=== PATIENT | female | born 1935 | race Caucasian/White ===

== ENCOUNTER 2021-05-28 08:40 | Inpatient (IN) | payer MEDICARE, SELFPAY ==
[2021-05-28] VITALS (13 sets, daily range): BP systolic 154–177; BP diastolic 64–87; PULSE 63–81; RESP 15–21; TEMP 36.8–36.9; O2SAT 94–100; BMI 42.0
[2021-05-28] MEDS: sodium chloride 0.9% 1,000 ML 999 ML IV (09:15)
[2021-05-28] MEDS: meclizine 25 mg tablet 50 MG PO (09:16)
--- NOTE | 2021-05-28 09:20 | ED_ITS ---
HPI - Dizziness General: Chief Complaint: Dizziness Stated Complaint: VERTIGO; N/V Time Seen by Provider: 05/28/21 08:41 Source: patient and EMS Mode of arrival: EMS Limitations: no limitations History of Present Illness: HPI Narrative: 85-year-old female has a history of vertigo states that the last day she has been having vertigo spells. States it is worse when walking. She states that she does not take any meds at home and did have some nausea and vomiting today. Patient called EMS today and was given Zofran and states her symptoms have improved. Denies any diarrhea. Denies any headache. States this feels just like her vertigo has in the past. Its improved with rest. Associated symptoms: Reports nausea and vomiting; Denies chest pain or chills Review of Systems Const: Denies: fever(s), chills, body aches or change in appetite Eyes: Denies: blurry vision or eye discomfort ENMT: Denies: throat pain or dental pain Card: Denies: chest pain Resp: Denies: dyspnea GI: Reports: nausea and vomiting : Denies: dysuria Musc: Denies: neck pain or back pain Skin/Breast: Denies: rash Neuro: Reports: vertigo Psych: Denies: depression Lazaro/Lymph: Denies: easy bruising All/Imm: Denies: urticaria PFSH ED PFSH: Family History (Updated 10/25/20 @ 11:07 by Stacey Tabares LPN) Denies family history of Diabetes Cancer Social History (Updated 10/25/20 @ 11:08 by Stacey Tabares LPN) Smoking and tobacco status: never smoked Household members: none Current occupational status: retired Physical Exam Const: COMMON NORMALS: no acute distress, patient oriented x3 and healthy appearing HENMT: COMMON NORMALS: normocephalic and atraumatic HEAD & SCALP: normocephalic and atraumatic Eye: COMMON NORMALS: Equal, round and reactive pupils present and EOMs intact bilaterally PUPIL: Yes Equal, round and reactive pupils present Neck/C-Spine: COMMON NORMALS: full ROM and supple Chest: COMMONS NORMALS: normal inspection of the chest and normal palpation of entire chest wall Resp: COMMON NORMALS: normal respiratory effort, No retractions, No use of accessory muscles and clear to auscultation bilaterally AUSCULTATION: clear to auscultation bilaterally Cardio: COMMON NORMALS: regular rate, regular rhythm and No murmurs present (Cardio) RATE: regular rate RHYTHM: regular rhythm GI: COMMON NORMALS: Normal to inspection, nondistended, normoactive bowel sounds present, Soft to palpation, non-tender and no masses PALPATION: Yes Soft to palpation Extremity: COMMON NORMALS: normal to inspection and full ROM Neuro: COMMON NORMALS: patient oriented x3, moves all extremities and no focal motor deficits Psych: COMMON NORMALS: mental status grossly normal, Normal thought process present and cooperative THOUGHT PROCESS: Normal thought process present Skin: COMMON NORMALS: no rashes or lesions noted and no wounds GENERAL SKIN EXAM: no rashes or lesions noted Course Vital Signs: Vital signs: Vital Signs Temperature 98.4 F 05/28/21 08:53 Pulse Rate 65 05/28/21 08:53 Respiratory Rate 21 H 05/28/21 08:53 Blood Pressure 159/87 05/28/21 08:53 Pulse Oximetry 99 05/28/21 08:53 MDM - Dizziness MDM Narrative: Medical decision making narrative: Patient presents here with vomiting along with vertigo. Vomiting likely due to vertigo. Vertigo seems to be peripheral in nature and she has had a history of peripheral vertigo. Her symptoms are improved with meclizine and Zofran. She is hyponatremic likely due to dehydration. Spoke to hospitalist will admit at this time. Lab Data: Labs: Lab Results 05/28/21 05/28/21 Range/Units 09:08 09:08 WBC 7.4 (4.0-10.0) 10^3/ uL RBC 4.01 L (4.1-5.3) 10^6/u L Hgb 12.3 (11.5-15.3) g/dL Hct 36.5 L (37.0-47.0) % MCV 91.0 (81-99) fL MCH 30.7 (28.0-34.0) pg MCHC 33.7 (30.0-36.0) g/dL RDW 12.5 (12.1-15.1) % Plt Count 259 (130-400) 10^3/c mm MPV 10.3 (7.4-10.4) fL Neut % (Auto) 67.5 % Lymph % (Auto) 24.7 % [place] % (Auto) 6.3 % Eos % (Auto) 0.3 % Baso % (Auto) 0.7 % Neut # (Auto) 5.00 (1.8-7.7) 10^3/u L Lymph # (Auto) 1.8 (0.8-4.8) 10^3/u L [place] # (Auto) 0.5 (0.2-0.9) 10^3/u L Eos # (Auto) 0.0 (0.0-0.8) 10^3/u L Baso # (Auto) 0.1 (0.0-0.1) 10^3/u L Nucleated RBC % (a uto) 0 % Nucleated RBCs # 0.0 /100WBC Sodium 122 L (136-145) mmol/L Potassium 4.0 (3.5-5.1) mmol/L Chloride 88 L (98-107) mmol/L Carbon Dioxide 22 (22-29) mmol/L Anion Gap 16.0 (5-19) BUN 13 (8-23) mg/dL Creatinine 0.5 (0.5-0.9) mg/dL GFR Calculation Not Reportable Glucose 213 H (65-115) mg/dL Calculated Osmolal ity 260 L (285-295) mOsm/k g Calcium 8.6 (8.5-10.5) mg/dL Total Bilirubin 0.3 (0.15-1.2) mg/dL AST 21 (0-32) U/L ALT 15 (0-33) U/L Alkaline Phosphata se 95 (35-105) IU/L Total Protein 6.7 (6.6-8.7) g/dL Albumin 3.8 (3.5-5.2) g/dL Globulin 2.9 (1.3-4.6) g/dL Lipase 14 (13-60) U/L Discharge Plan Discharge Patient Disposition: Admitted As Inpatient Clinical Impression: Acute hyponatremia, Vertigo, Vomiting Condition: Stable Coding Level of Care Code ED Area Intelligence Technician for Armando Fwd Exam Comprehensive
[2021-05-28 09:27] LABS: Basophils # 0.1 10^3/uL (0.0-0.1); Basophils % 0.7 %; Eosinophils % 0.3 %; Hematocrit 36.5 % (37.0-47.0); Hemoglobin 12.3 g/dL (11.5-15.3); Lymphocytes # 1.8 10^3/uL (0.8-4.8); Lymphocytes % 24.7 %; Mean Corpuscular HGB Conc 33.7 g/dL (30.0-36.0); Mean Corpuscular Hemoglobin 30.7 pg (28.0-34.0); Mean Platelet Volume 10.3 fL (7.4-10.4); Monocytes # 0.5 10^3/uL (0.2-0.9); Monocytes % 6.3 %; Neutrophils % 67.5 %; Nucleated Red Blood Cells % 0 %; Platelet Count 259 10^3/cmm (130-400); Red Blood Count 4.01 10^6/uL (4.1-5.3); Red Cell Distribution Width 12.5 % (12.1-15.1); White Blood Count 7.4 10^3/uL (4.0-10.0)
[2021-05-28 09:45] LABS: Alanine Aminotransferase 15 U/L (0-33); Albumin Level 3.8 g/dL (3.5-5.2); Alkaline Phosphatase 95 IU/L (35-105); Aspartate Amino Transferase 21 U/L (0-32); Blood Urea Nitrogen 13 mg/dL (8-23); Calcium 8.6 mg/dL (8.5-10.5); Carbon Dioxide 22 mmol/L (22-29); Chloride 88 mmol/L (98-107); Globulin 2.9 g/dL (1.3-4.6); Glucose 213 mg/dL (65-115); Lipase 14 U/L (13-60); Osmolality Calculated 260 mOsm/kg (285-295); Sodium 122 mmol/L (136-145); Total Bilirubin 0.3 mg/dL (0.15-1.2); Total Protein 6.7 g/dL (6.6-8.7)
--- NOTE | 2021-05-28 10:13 | XRR_ITS ---
PROCEDURE INFORMATION: Exam: XR Chest Exam date and time: 05/28/2021 10:13 AM Age: 85 years old Clinical indication: Shortness of breath; Additional info: Vertigo TECHNIQUE: Imaging protocol: XR of the chest. Views: 1 view. Total images: 1 COMPARISON: CR Chest 2 views* [id number] 12/08/2015 10:34 AM FINDINGS: Lungs: Nonspecific left lung base opacity favors atelectasis or pneumonia. Pleural spaces: Unremarkable. No pleural effusion. No pneumothorax. Heart/Mediastinum: Mild cardiomegaly. Bones/joints: Osseous structures are unchanged from the prior exam. XR/XR chest 1V portable [id number] IMPRESSION: 1. Nonspecific left lung base opacity favors atelectasis or pneumonia. 2. Mild cardiomegaly.
--- NOTE | 2021-05-28 10:30 | PC.NURSE ---
Changed and cleaned pt. No LARGE brief in the ER. Use underpads for coverage
--- NOTE | 2021-05-28 10:39 | PC.PHAR ---
PT STATES SHE TAKES CARE OF HER OWN MEDICATIONS-PT STATES SHE TAKES OXYBUTYNIN 5MG BID SOMETIMES TID EXT MED HISTORY DOESNT SHOW WHEN LAST FILLED [facility] NOT OPEN TO VERIFY-PT STATES SHE USES [address] AT [facility] NOT OPEN TO VERIFY WHAT WAS FILLED-NOTES ARE MADE IN THE PHARMACY COMMENTS
--- NOTE | 2021-05-28 12:02 | PC.NURSE ---
up to [facility] with much assistance. large BM went into the wee hat so no specimen collected
[2021-05-28 12:33] LABS: Blood Urea Nitrogen 12 mg/dL (8-23); Calcium 8.2 mg/dL (8.5-10.5); Carbon Dioxide 24 mmol/L (22-29); Chloride 92 mmol/L (98-107); Glucose 179 mg/dL (65-115); Osmolality Calculated 268 mOsm/kg (285-295); Sodium 127 mmol/L (136-145)
[2021-05-28 12:43] LABS: Anion Gap 14.6 (5-19)
[2021-05-28 12:44] LABS: Potassium 3.6 mmol/L (3.5-5.1)
--- NOTE | 2021-05-28 13:44 | PM.HP ---
Providers/Chief Complaint Primary Care Provider: Jimi Lynn DO Chief Complaint: VERTIGO; N/V History of Present Illness Ryanne Bird is a 85 year old female with a past medical history of BPPV, hypertension, hypothyroidism, ill-pjfxetr-royenqgci type 2 diabetes mellitus, who presents to [facility] due to complaints of vertigo, nausea, vomiting. Patient tells me that she has a history of benign positional vertigo, 2 days ago she had an episode of vertigo, she describes it as an unsteadiness and dizziness, as if the room is spinning around her, no tinnitus, no loss of vision, she did have a couple of stumbling episodes, no significant fall, no significant head trauma no paresthesias, no focal neurologic deficits, no facial droop, no slurring of her speech, episode lasting a few seconds to a few minutes she is not sure if they are worse associate with head positions. Along with the vertigo she felt quite nauseous, vomiting, had a couple of vomiting episodes, was not able to keep down liquids. Symptoms persisted over the next 48 hours, now she tells me that she has significant episodes of vomiting, is not able to keep down any liquids, felt a bit lightheaded, continues to have vertigo episodes, that she decided to come to the emergency room. In the emergency room, she was found to have a serum sodium level of 122, which improved with IV hydration up to 127. Currently she is alert oriented x3, answer all questions appropriate, NIH stroke scale 0, no focal neurologic deficits, no slurring of she is no facial droop, no tenderness, no blurry vision, still feels a bit nauseous, no dizziness currently, denies any chest pain, no palpitations, no cardiac history, no history of CVAs Review of Systems Const: Denies: fever(s), chills, fatigue or malaise Eyes: Denies: change in vision or blurry vision ENMT: Denies: nasal congestion Card: Reports: lightheadedness; Denies: chest pain, palpitations, syncope or dyspnea on exertion Resp: Denies: dyspnea, productive cough, non-productive cough or wheezing GI: Denies: abdominal pain, nausea, vomiting, hematemesis, diarrhea, constipation, hematochezia or melena : Denies: flank pain, dysuria or urinary frequency Musc: Denies: neck pain or back pain Skin/Breast: Denies: rash Neuro: Reports: dizziness and vertigo; Denies: headache(s) Psych: Denies: anxiety or depression Endo: Denies: polyuria or polydipsia Medications/Allergies Home Medications Medication Instructions Recorded Confirmed Last Taken Type artificial tears solution 1 drp OPHTHALMIC (EYE) . DIRECTED 05/28/21 05/28/21 Unknown History aspirin [Aspir-81] 81 mg PO DAILY 05/28/21 05/28/21 Unknown History calcium 1,200 mg PO DAILY 05/28/21 05/28/21 Unknown History cyanocobalamin (vitamin B-12) 1,000 mcg PO BID 05/28/21 05/28/21 Unknown History [Vitamin B-12] ferrous sulfate 27 mg PO BID 05/28/21 05/28/21 Unknown History gabapentin 600 mg PO BID 05/28/21 05/28/21 Unknown History glucos sul [id number]-Mn 1 cap PO BID 05/28/21 05/28/21 Unknown History [Glucosamine Chondroitin] insulin glargine [Lantus Solostar 10 unit SUBCUT BEDTIME 05/28/21 05/28/21 05/26/21 History U-100 Insulin] levothyroxine [Synthroid] 50 mcg PO DAILY 05/28/21 05/28/21 Unknown History losartan 25 mg PO DAILY 05/28/21 05/28/21 Unknown History omega-3 fatty acids [Fish Oil] 2,000 mg PO BID 05/28/21 05/28/21 Unknown History oxybutynin chloride 5 mg PO .BID SOMETIMES TID 05/28/21 05/28/21 Unknown History pioglitazone 45 mg PO DAILY 05/28/21 05/28/21 Unknown History pravastatin 20 mg PO BEDTIME 05/28/21 05/28/21 Unknown History Allergies Allergy/AdvReac Type Severity Reaction Status Date / Time No Known Allergies Allergy Verified 05/28/21 08:42 PFSH Acute PFSH: Medical History (Updated 05/28/21 @ 13:51 by Marcos Osei MD) High cholesterol Type 2 diabetes mellitus with diabetic polyneuropathy Surgical History (Updated 05/28/21 @ 13:49 by Marcos Osei MD) History of cholecystectomy Family History (Updated 08/01/21 @ 13:48 by Marcos Osei MD) Mother Cancer CAD (coronary artery disease) Father Diabetes Social History (Updated 10/25/20 @ 11:08 by Stacey Tabares LPN) Smoking and tobacco status: never smoked Household members: none Current occupational status: retired Vitals/I&O/Wt Last Vital Signs Temp 98.4 F 05/28/21 08:53 Pulse 71 05/28/21 12:00 Resp 15 05/28/21 12:00 BP 176/70 05/28/21 12:00 Pulse Ox 97 05/28/21 12:00 Weight last 48 hrs Weight 111.13 kg Physical Exam Const: COMMON NORMALS: no acute distress and patient oriented x3 GENERAL APPEARANCE: cooperative and comfortable HENMT: COMMON NORMALS: normocephalic HEAD & SCALP: normocephalic Eye: COMMON NORMALS: Equal, round and reactive pupils present and EOMs intact bilaterally GENERAL EYE: appearance normal, both eyes and all related structures PUPIL: Yes Equal, round and reactive pupils present DIRECT OPHTHALMOSCOPY: Yes no papilledema Neck/C-Spine: COMMON NORMALS: full ROM, no JVD and Thyroid normal Lymph: LYMPHATIC: no lymphadenopathy noted Resp: COMMON NORMALS: normal respiratory effort, No retractions, No use of accessory muscles and clear to auscultation bilaterally AUSCULTATION: clear to auscultation bilaterally Cardio: COMMON NORMALS: no JVD, regular rate, regular rhythm, S1 normal heart sound present, S2 normal heart sound present, No gallops present (Cardio), No clicks present (Cardio) and No murmurs present (Cardio) RATE: regular rate RHYTHM: regular rhythm HEART SOUNDS: S1 normal heart sound present and S2 normal heart sound present GI: COMMON NORMALS: Normal to inspection, nondistended, normoactive bowel sounds present, Soft to palpation, non-tender and No hepatosplenomegaly present PALPATION: Yes Soft to palpation and Yes No hepatosplenomegaly present Extremity: COMMON NORMALS: normal to inspection, full ROM and no pedal edema Neuro: COMMON NORMALS: patient oriented x3, CN's II-XII intact bilaterally, moves all extremities and no focal motor deficits Psych: COMMON NORMALS: mental status grossly normal, Normal thought process present and cooperative THOUGHT PROCESS: Normal thought process present Data : 05/28/21 09:08 05/28/21 11:40 A&P Assessment and plan (1) Acute hyponatremia: -Likely related to likely hypovolemic hyponatremia -Continue serum sodium levels improving to 127 Status: Acute (2) Vertigo: -Seems like benign positional vertigo -We will will do troponin series, telemetry monitoring -CT head, carotid artery ultrasound, cardiac echo -Consult PT OT -Justin Hallpike maneuver, antiemetics -Continue IV hydration as above Status: Acute (3) Vomiting: Status: Acute (4) Hypothyroidism: -Recheck TSH Status: Acute (5) Type 2 diabetes mellitus with diabetic polyneuropathy: -Continue glargine 10 units at bedtime, insulin sliding scale Status: Acute Attestations Medical Necessity Statement*: Patient requires hospitalization, outpatient with observation, for dehydration, vertigo, benign positional vertigo, hyponatremia Coding Level of Care Code Acute Glass Lined Tank Repairer for g Fwd Diagnoses Acute hyponatremia E87.1 Vertigo R42 Vomiting R11.10 Hypothyroidism E03.9 Type 2 diabetes mellitus with diabetic polyneuropathy E11.42
[2021-05-28 14:09] LABS: Troponin(5th) Baseline 18 ng/L (0-10)
--- NOTE | 2021-05-28 14:44 | PC.NURSE ---
ekg done and shown to doctor monroe. now on chart
[2021-05-28 15:09] LABS: Blood Urine 2+ (Negative); Glucose Urine UA Norm (Normal); Ketones Urine 1+ (Negative); Nitrate Urine Negative (Negative); Protein Urine 1+ (Negative); Specific Gravity, Urine 1.015 (1.005-1.030); Urine Appearance Cloudy (CLEAR); Urine Color Straw (Yellow); pH Urine 6.5 (5-7)
[2021-05-28 15:10] LABS: Add Urine Culture? No; Add Urine Microscopic? YES; Bacteria Urine 4+ /hpf; Bilirubin Urine Neg (Negative); Leukocyte Esterase Urine 2+ (Negative); Squamous Epithelial Cell Urine RARE /hpf (0-5); Urobilinogen Urine Norm (Negative); WBC Urine 25-40 /hpf (0-5)
[2021-05-28 15:24] LABS: Thyroid Stimulating Hormone 2.53 uIU/mL (0.27-4.20)
--- NOTE | 2021-05-28 16:27 | CTR_ITS ---
PROCEDURE INFORMATION: Exam: CT Head Without Contrast Exam date and time: 05/28/2021 4:27 PM Age: 85 years old Clinical indication: Dizziness; Patient HX: C/O vertigo TECHNIQUE: Imaging protocol: Computed tomography of the head without contrast. Radiation optimization: All CT scans at this facility use at least one of these dose optimization techniques: automated exposure control; mA and/or kV adjustment per patient size (includes targeted exams where dose is matched to clinical indication); or iterative reconstruction. COMPARISON: No relevant prior studies available. RADIATION DOSE METRICS: Total DLP (mGy-cm): 860.42 FINDINGS: Brain: Mild cortical volume loss. Mild hypodensities in supratentorial periventricular and subcortical white matter, consistent with microangiopathy. No intracranial hemorrhage. Cerebral ventricles: No ventriculomegaly. Paranasal sinuses: Visualized sinuses are unremarkable. No fluid levels. Mastoid air cells: Visualized mastoid air cells are well aerated. Orbital cavity: Prior cataract surgery. Vasculature: No hyperdense artery. Bones/joints: Unremarkable. No acute fracture. Soft tissues: Unremarkable. CT/CT head wo con* [id number] IMPRESSION: 1. No acute intracranial abnormality. Radiation Dose CTDIVOL = (mGy): DLP = 860.42 (mGy-cm)
[2021-05-28] MEDS: famotidine 20 mg Tablet PO (17:05)
[2021-05-28] MEDS: omega-3 fatty acids 1,000 mg Capsule 2000 MG PO (17:05)
[2021-05-28] MEDS: gabapentin 300 mg Capsule 600 MG PO (17:05)
[2021-05-28] MEDS: enoxaparin 40 mg/0.4 mL Syringe SUBCUT (17:05)
[2021-05-28] MEDS: cyanocobalamin 1,000 mcg Tablet 1000 MCG PO (17:05)
[2021-05-28] MEDS: sodium chloride 0.9% 1,000 ML 75 ML IV (17:06)
[2021-05-28 17:21] LABS: Glucose Point of Care 243 mg/dL (70-110)
[2021-05-28 18:10] LABS: Troponin T (5th) Once 18 ng/L (0-10)
--- NOTE | 2021-05-28 19:40 | ECG_ITS ---
[facility] Test Date: 2021-05-28 Pat Name: Ryanne Bird Department: Room: 254 Gender: Female Brake Liner: : 1935 Requested By: Marcos Osei Order Number: [id number] Reading MD: AMINAH ELLIS Measurements Intervals [place] Rate: 72 P: 54 MS: 165 QRS: 61 QRSD: 146 T: 33 QT: 418 QTc: 460 Interpretive Statements SINUS RHYTHM INTRAVENTRICULAR CONDUCTION DELAY [130+ ms QRS DURATION] POSSIBLE RIGHT VENTRICULAR HYPERTROPHY [SOME/ALL OF: PROMINENT R IN V1, LATE TRANSITION, RAD, TIBURCIO, SSS] Compared to ECG 08/08/2019 23:24:30 Intraventricular conduction delay now present Right bundle-branch block no longer present Electronically Signed On 05-29-2021 23:37:25 CDT by AMINAH ELLIS [email or web address]
[2021-05-28 20:22] LABS: Troponin T (5th) Once 19 ng/L (0-10)
[2021-05-28 20:59] LABS: Glucose Point of Care 187 mg/dL (70-110)
[2021-05-28] MEDS: atorvastatin 40 mg Tablet 20 MG PO (21:02)
[2021-05-28] MEDS: insulin glargine 100 units/1 mL 10 UNIT SUBCUT (21:02)
[2021-05-29] VITALS (9 sets, daily range): BP systolic 124–175; BP diastolic 63–75; PULSE 66–86; RESP 16–18; TEMP 36.4–36.8; O2SAT 93–98
[2021-05-29 05:34] LABS: Basophils # 0.1 10^3/uL (0.0-0.1); Basophils % 0.9 %; Eosinophils # 0.2 10^3/uL (0.0-0.8); Hematocrit 33.4 % (37.0-47.0); Hemoglobin 10.9 g/dL (11.5-15.3); Lymphocytes % 39.5 %; Mean Corpuscular HGB Conc 32.6 g/dL (30.0-36.0); Mean Corpuscular Hemoglobin 30.4 pg (28.0-34.0); Mean Corpuscular Volume 93.3 fL (81-99); Mean Platelet Volume 10.6 fL (7.4-10.4); Monocytes # 0.9 10^3/uL (0.2-0.9); Monocytes % 11.7 %; Neutrophils # 3.43 10^3/uL (1.8-7.7); Neutrophils % 44.6 %; Nucleated Red Blood Cells % 0 %; Platelet Count 223 10^3/cmm (130-400); Red Blood Count 3.58 10^6/uL (4.1-5.3); Red Cell Distribution Width 12.9 % (12.1-15.1); White Blood Count 7.7 10^3/uL (4.0-10.0)
[2021-05-29 05:58] LABS: Alanine Aminotransferase 12 U/L (0-33); Albumin Level 3.1 g/dL (3.5-5.2); Alkaline Phosphatase 74 IU/L (35-105); Blood Urea Nitrogen 15 mg/dL (8-23); Calcium 8.1 mg/dL (8.5-10.5); Carbon Dioxide 23 mmol/L (22-29); Chloride 96 mmol/L (98-107); Globulin 2.8 g/dL (1.3-4.6); Glucose 134 mg/dL (65-115); Magnesium 1.6 mg/dL (1.7-2.3); Osmolality Calculated 269 mOsm/kg (285-295); Phosphorus 2.5 mg/dL (2.5-4.5); Sodium 128 mmol/L (136-145); Total Bilirubin 0.3 mg/dL (0.15-1.2); Total Protein 5.9 g/dL (6.6-8.7)
[2021-05-29 06:05] LABS: Aspartate Amino Transferase 18 U/L (0-32)
[2021-05-29 06:44] LABS: Glucose Point of Care 109 mg/dL (70-110)
[2021-05-29] MEDS: sodium chloride 0.9% 1,000 ML 75 ML IV (09:12)
[2021-05-29] MEDS: losartan 50 mg Tablet 25 MG PO (09:20)
[2021-05-29] MEDS: omega-3 fatty acids 1,000 mg Capsule 2000 MG PO ×2 (09:21→19:33)
[2021-05-29] MEDS: levothyroxine 50 mcg Tablet PO (09:21)
[2021-05-29] MEDS: cyanocobalamin 1,000 mcg Tablet 1000 MCG PO ×2 (09:21→19:33)
[2021-05-29] MEDS: famotidine 20 mg Tablet PO ×2 (09:21→19:33)
[2021-05-29] MEDS: aspirin 81 mg EC Tablet PO (09:21)
[2021-05-29] MEDS: gabapentin 300 mg Capsule 600 MG PO ×2 (09:21→19:34)
--- NOTE | 2021-05-29 10:31 | PC.CHAP ---
Pastoral Care Encounter/Spiritual Assessment Type of Contact [] Declined staff veterinarian visit [] Patient/Family/Request visit [] Outpatient visit [x] Follow-up visit [] Physician referral [] Code/Alert [] Routine visit [] Staff referral [] Actively dying [] Patient sleeping [] Family support [] [] Out of room [] Palliative care [] [] Receiving care in room [] Pre-surgical visit [] Trauma [] Long length of stay [] ICU visit [] Other: Relational/Emotional Strength [] Patient feels connected with others/family/visitors/staff [] Distress [] Loneliness/isolation [] Abandonment Spirituality of Patient [] Person of Jania [] Attends Sikh of their Jania [] Believes in Prayer [] Reads Bible or Anabaptist materials [] There are Spiritual issues to be addressed Pony Ride Attendant Interventions [] Prayer [] Active listening [] Non-anxious presence [] Spiritual/emotional support [] Crisis/trauma care [] Spiritual counseling [] Bereavement support [] Provided bereavement packet [] Provided Bible/devotional materials [] Provided toy/stuffed animal, coloring book to patient or family member [] Provided Communion [] Anointing/[place] [] Salvation [] Completed spiritual assessment [] Other: Impact on Illness or Injury [] Angry [] Fearful [] Anxious [] Often cries [] Exhaustion [] Unable to work [] Unable to attend mormon [] Unable to walk/stand [] Unable to read [] Unable to drive [] Unable to eat/drink [] Unable to sleep [] Unable to be with family [] Patient intubated [] Other: Summary Time spent with patient
[2021-05-29] MEDS: amlodipine 10 mg Tablet PO (10:59)
[2021-05-29 11:03] LABS: Glucose Point of Care 225 mg/dL (70-110)
--- NOTE | 2021-05-29 12:00 | PM.PN ---
Subjective Subjective: Interval history: Patient was seen ambulating hallways with physical therapy staff, she reports dizziness especially when changing head positions, no nausea, no vomiting, no generalized weakness, no focal weakness, no paresthesias, Vitals/I&O/Wt Last Vital Signs Temp 98.0 F 05/29/21 11:36 Pulse 66 05/29/21 11:36 Resp 18 05/29/21 11:36 BP 168/69 05/29/21 11:36 Pulse Ox 97 05/29/21 11:36 05/28/21 05/29/21 05/29/21 22:59 06:59 14:59 Intake Total 360 / 1360 1000 / 2360 Output Total 300 / 300 700 / 700 Balance 360 / 1360 700 / 2060 -700 / -700 Weight last 48 hrs Weight 111.13 kg Physical Exam Const: COMMON NORMALS: no acute distress and patient oriented x3 Resp: COMMON NORMALS: normal respiratory effort, No retractions, No use of accessory muscles and clear to auscultation bilaterally AUSCULTATION: clear to auscultation bilaterally Cardio: COMMON NORMALS: regular rate, regular rhythm, S1 normal heart sound present and S2 normal heart sound present RATE: regular rate RHYTHM: regular rhythm HEART SOUNDS: S1 normal heart sound present and S2 normal heart sound present GI: COMMON NORMALS: Normal to inspection, nondistended, normoactive bowel sounds present, Soft to palpation and non-tender PALPATION: Yes Soft to palpation Extremity: COMMON NORMALS: no pedal edema Neuro: COMMON NORMALS: patient oriented x3 Psych: COMMON NORMALS: mental status grossly normal Data : 05/29/21 04:25 05/29/21 04:25 Micro: Microbiology 05/28/21 14:20 Urine Culture - Preliminary Urine Catheterized Gram Negative Rods A&P Assessment and plan (1) Acute hyponatremia: -Likely related to likely hypovolemic hyponatremia -Continue monitoring serum sodium levels improving to 128 Status: Acute (2) Vertigo: -Seems like benign positional vertigo -Does have nystagmus, bilaterally -We will will do troponin series, telemetry monitoring -CT head no acute findings, carotid artery ultrasound, cardiac echo -Consult PT OT -Justin Hallpike maneuver, antiemetics -Hold IV hydration Status: Acute (3) Vomiting: Status: Acute (4) Hypothyroidism: -Recheck TSH Status: Acute (5) Type 2 diabetes mellitus with diabetic polyneuropathy: -Continue glargine 10 units at bedtime, insulin sliding scale Status: Acute (6) UTI (urinary tract infection): Urine cultures show greater than 100,000 gram-negative rods, start Rocephin Status: Acute Attestations Medical Necessity Statement*: Patient requires hospitalization inpatient, Greater than 2 midnights, due to dizziness, UTI, vomiting, hyponatremia Coding Level of Care Code Acute Media Center Specialist for [facility] Fwd Diagnoses Acute hyponatremia E87.1 Vertigo R42 Vomiting R11.10 Hypothyroidism E03.9 Type 2 diabetes mellitus with diabetic polyneuropathy E11.42 UTI (urinary tract infection) N39.0
[2021-05-29] MEDS: cefTRIAXone 1,000 MG in sodium chloride 0.9% (plus) 50 ML 100 MG IV (12:07)
--- NOTE | 2021-05-29 16:27 | USCV_ITS ---
Ryanne Bird Age: 85 Gender: F : 1935 Exam Date: 05/29/2021 08:18 Ordering Phys: Marcos Osei MD Technologist: Exam Location: [facility] [place] Indication: DIZZY Risk Factors: Previous Vascular Surgery: Right Brachial BP: / Left Brachial BP: / Right Left Velocity (cm/s) Spectral Plaque Velocity (cm/s) Spectral Plaque Syst/Diast Broadening Syst/Diast Broadening 90.95/ 13.20 Prox CCA 111.40/ 18.80 95.90/ 14.95 Mid CCA 94.10 / 11.60 70.70/ 9.80 Distal CCA 98.40 / 15.90 67.20/ 9.80 Prox ICA 66.00 / 14.50 72.00/ 10.00 Mid ICA 78.30 / 23.50 82.80/ 15.70 Distal ICA 80.50 / 16.80 75.20 ECA 92.60 0.80 ICA/CCA 0.72 Antegrade Vertebral Antegrade 26.30/ 4.50 cm/s 40.30/ 7.80 cm/s Tri Subclavian Tri 47.00 73.80 CONCLUSIONS Right ICA stenosis <50%. Left ICA stenosis <50%. Normal antegrade Doppler flow noted in the right vertebral artery. Normal antegrade Doppler flow noted in the left vertebral artery. Surinder De La Rosa MD (Electronically Signed) Final Date: 29 May 2021 17:21 S
--- NOTE | 2021-05-29 16:27 | USCV_ITS ---
Ryanne Bird Age: 85 Gender: F : 1935 Exam Date: 05/29/2021 08:07 Ordering Phys: Marcos Osei MD Technologist: Exam Location: [facility] [place] Indication: VERTIGO BP: 138 / 69 HR: 69 Rhythm: Sinus Technical Quality: Adequate MEASUREMENTS (Male / Female) Normal Values 2D ECHO LV Diastolic Diameter PLAX 3.7 cm 4.2 - 5.9 / 3.9 - 5.3 cm LV Systolic Diameter PLAX 2.2 cm IVS Diastolic Thickness 1.1 cm 0.6 - 1.0 / 0.6 - 0.9 cm IVS Systolic Thickness 1.1 cm LVPW Diastolic Thickness 1.1 cm 0.6 - 1.0 / 0.6 - 0.9 cm LVPW Systolic Thickness 1.1 cm LVOT Diameter 2.0 cm LV Ejection Fraction 2D Teich 72.0 % LV Ejection Fraction MOD 2C 75.5 % LV Ejection Fraction 2C AL 75.3 % LA Diameter 3.3 cm LA Width 3.4 cm LA Height 6.0 cm RA Width 3.5 cm RA Height 5.1 cm Aorta at Sinotubular Diameter 2.6 cm DOPPLER AV Peak Velocity 172.0 cm/s LVOT Peak Velocity 113.0 cm/s AV Area Cont Eq vti 2.0 cm squared AV Area Cont Eq pk 2.2 cm squared MV Area PHT 5.0 cm squared Mitral E to A Ratio 1.0 MV E' Velocity 71.5 cm/s Mitral E to MV E' Ratio 16.1 Mitral E to LV E' Lateral Ratio 16.1 Mitral E to LV E' Septal Ratio 16.1 TR Peak Velocity 153.3 cm/s TR Peak Gradient 9.4 mmHg TV Peak E Velocity 126.0 cm/s Right Atrial Pressure 3.0 mmHg Pulmonary Artery Systolic Pressu 12.4 mmHg FINDINGS Left Ventricle Normal left ventricular cavity size. Normal left ventricular systolic function. No regional wall motion abnormalities. Left ventricular ejection fraction is estimated at 65 %. Grade I/IV diastolic dysfunction (abnormal relaxation filling pattern), normal to mildly elevated filling pressures. Right Ventricle The right ventricle is normal in size and function. Right Atrium The right atrium is normal in size. Left Atrium The left atrium is normal in size. Mitral Valve Moderately thickened mitral valve. Moderate mitral annular calcification. Mild mitral valve regurgitation. Aortic Valve Moderate aortic valve calcification. No aortic valve stenosis. No aortic valve regurgitation. Tricuspid Valve Structurally normal tricuspid valve without significant stenosis or regurgitation. Pulmonary artery systolic pressure is normal. Pulmonic Valve Structurally normal pulmonic valve without significant stenosis. There is no pulmonic regurgitation. Pericardium Normal pericardium without effusion. Aorta Normal ascending aorta dimension. CONCLUSIONS 1-Normal left ventricular cavity size. Normal left ventricular systolic function. No regional wall motion abnormalities. Left ventricular ejection fraction is estimated at 65 %. Grade I/IV diastolic dysfunction (abnormal relaxation filling pattern), normal to mildly elevated filling pressures. 2-Moderate aortic valve calcification. No aortic valve stenosis. No aortic valve regurgitation. 3-Moderately thickened mitral valve. Moderate mitral annular calcification. Mild mitral valve regurgitation. 4-There is no pericardial effusion. 5-There are no prior echocardiogram studies to compare. Hailee Guthrie MD (Electronically Signed) Final Date: 29 May 2021 23:26 S
[2021-05-29 16:39] LABS: Glucose Point of Care 154 mg/dL (70-110)
[2021-05-29] MEDS: enoxaparin 40 mg/0.4 mL Syringe SUBCUT (19:34)
[2021-05-29 20:23] LABS: Glucose Point of Care 219 mg/dL (70-110)
[2021-05-29] MEDS: atorvastatin 40 mg Tablet 20 MG PO (21:09)
[2021-05-29] MEDS: insulin glargine 100 units/1 mL 10 UNIT SUBCUT (21:10)
[2021-05-30] VITALS (7 sets, daily range): BP systolic 135–152; BP diastolic 69–73; PULSE 74–88; RESP 17–18; TEMP 36.3–36.9; O2SAT 95–100
[2021-05-30 05:52] LABS: Basophils # 0.1 10^3/uL (0.0-0.1); Basophils % 1.2 %; Eosinophils # 0.4 10^3/uL (0.0-0.8); Eosinophils % 4.4 %; Hematocrit 37.1 % (37.0-47.0); Hemoglobin 12.1 g/dL (11.5-15.3); Lymphocytes # 2.2 10^3/uL (0.8-4.8); Mean Corpuscular HGB Conc 32.6 g/dL (30.0-36.0); Mean Corpuscular Hemoglobin 30.3 pg (28.0-34.0); Mean Corpuscular Volume 92.8 fL (81-99); Mean Platelet Volume 10.6 fL (7.4-10.4); Monocytes % 11.5 %; Neutrophils # 4.84 10^3/uL (1.8-7.7); Neutrophils % 56.7 %; Nucleated Red Blood Cells % 0 %; Platelet Count 277 10^3/cmm (130-400); Red Cell Distribution Width 12.8 % (12.1-15.1); White Blood Count 8.5 10^3/uL (4.0-10.0)
[2021-05-30 06:09] LABS: Alanine Aminotransferase 15 U/L (0-33); Albumin Level 3.3 g/dL (3.5-5.2); Alkaline Phosphatase 84 IU/L (35-105); Anion Gap 13.4 (5-19); Aspartate Amino Transferase 21 U/L (0-32); Blood Urea Nitrogen 18 mg/dL (8-23); Calcium 8.6 mg/dL (8.5-10.5); Carbon Dioxide 25 mmol/L (22-29); Chloride 99 mmol/L (98-107); Globulin 3.2 g/dL (1.3-4.6); Glucose 164 mg/dL (65-115); Magnesium 1.6 mg/dL (1.7-2.3); Osmolality Calculated 282 mOsm/kg (285-295); Phosphorus 2.4 mg/dL (2.5-4.5); Potassium 4.4 mmol/L (3.5-5.1); Sodium 133 mmol/L (136-145); Total Bilirubin 0.2 mg/dL (0.15-1.2); Total Protein 6.5 g/dL (6.6-8.7)
[2021-05-30 06:37] LABS: Glucose Point of Care 181 mg/dL (70-110)
[2021-05-30] MEDS: aspirin 81 mg EC Tablet PO (09:06)
[2021-05-30] MEDS: gabapentin 300 mg Capsule 600 MG PO (09:06)
[2021-05-30] MEDS: levothyroxine 50 mcg Tablet PO (09:06)
[2021-05-30] MEDS: omega-3 fatty acids 1,000 mg Capsule 2000 MG PO (09:06)
[2021-05-30] MEDS: losartan 50 mg Tablet 25 MG PO (09:06)
[2021-05-30] MEDS: cyanocobalamin 1,000 mcg Tablet 1000 MCG PO (09:06)
[2021-05-30] MEDS: amlodipine 10 mg Tablet PO (09:07)
[2021-05-30] MEDS: famotidine 20 mg Tablet PO (09:07)
--- NOTE | 2021-05-30 09:23 | MR_ITS ---
WS: [id number] MRI BRAIN WITHOUT CONTRAST HISTORY: vertigo, dizziness COMPARISON: 05/28/2021 TECHNIQUE: Diffusion imaging, multiplanar T1, T2 and FLAIR imaging obtained. No evidence for acute infarct or hemorrhage. Aldrich-white matter differentiation is normal. Mild atrophy and mild chronic microvascular ischemic type changes in the white matter. No prior infar ct. Minimal ischemic change in the LEFT brad. Ventricles and extra-axial spaces are normal. No inferior displacement of cerebellar tonsils. The sella turcica and pituitary gland are unremarkabl e. Dural venous sinuses and [place] demonstrate no abnormality on this unenhanced studies. Paranasal sinuses: Clear. Mastoid air cells: Normal. Calvarium and scalp: Hyperostosis frontalis interna. MR/MR head wo con* [id number] IMPRESSION: 1. No acute infarct. 2. Mild atrophy and mild chronic small vessel ischemic disease.
--- NOTE | 2021-05-30 10:23 | PC.CHAP ---
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 visit [] Patient/Family/Request visit [] Outpatient visit [] Follow-up visit [] Physician referral [] Code/Alert [x] Routine visit [] Staff referral [] Actively dying [] Patient sleeping [] Family support [] [] Out of room [] Palliative care [] [x] Receiving care in room [] Pre-surgical visit [] Trauma [] Long length of stay [] ICU visit [] Other: Relational/Emotional Strength [] Patient feels connected with others/family/visitors/staff [] Distress [] Loneliness/isolation [] Abandonment Spirituality of Patient [] Person of Jania [] Attends Uatsdin of their Jania [] Believes in Prayer [] Reads Bible or Hinduism materials [] There are Spiritual issues to be addressed Forming And Assembling Supervisor Interventions [] Prayer [] Active listening [] Non-anxious presence [] Spiritual/emotional support [] Crisis/trauma care [] Spiritual counseling [] Bereavement support [] Provided bereavement packet [] Provided Bible/devotional materials [] Provided toy/stuffed animal, coloring book to patient or family member [] Provided Communion [] Anointing/Mullen [] Salvation [] Completed spiritual assessment [] Other: Impact on Illness or Injury [] Angry [] Fearful [] Anxious [] Often cries [] Exhaustion [] Unable to work [] Unable to attend rastafari [] Unable to walk/stand [] Unable to read [] Unable to drive [] Unable to eat/drink [] Unable to sleep [] Unable to be with family [] Patient intubated [] Other: Summary Time spent with patient
--- NOTE | 2021-05-30 10:55 | PM.DCS ---
Discharge Providers Date of Admission: 05/29/21 12:07 Date of Discharge: May 30, 2021 Attending Provider at Admission: Marcos Osei MD Attending Provider at Discharge: Marcos Osei MD Primary Care Provider: Jimi Lynn DO Diagnoses at Discharge Discharge Diagnosis (1) Acute hyponatremia: Status: Acute (2) Vertigo: Status: Acute (3) Vomiting: Status: Acute (4) Hypothyroidism: Status: Acute (5) Type 2 diabetes mellitus with diabetic polyneuropathy: Status: Acute (6) UTI (urinary tract infection): Status: Acute Reason for Visit Reason for Visit: VERTIGO; N/V Hospital Course Hospital Course This is a 85-year-old female with a past medical history of benign positional vertigo, hypertension, hyperlipidemia, insulin-dependent type 2 diabetes mellitus, who presents to [facility] due to complaints of vertigo, nausea, vomiting, dehydration Patient was admitted to [facility] for nausea, vomiting, dehydration, vertigo secondary to benign positional vertigo. On admission she was also found to be hyponatremic secondary to dehydration. She received IV hydration, was seen by physical therapy, and maneuvers were employed to help with her BPV symptoms in addition to antiemetics. Patient's nausea, vomiting, dehydration improved with IV hydration, serum sodium was 133 on discharge. She did have some degree of deconditioning during her hospitalization, after discussion with physical therapy, and with patient, it was deemed that she would benefit from home health care. In terms of her vertigo, she continued to have intermittent vertigo episodes despite employing maneuvers, antiemetics, and hydration. CT of the head had no acute findings, carotid artery ultrasound showed no hemodynamically significant stenosis, and telemetry monitoring did not show any significant arrhythmia events, cardiac echo showed an EF of 65%, grade 1 of 4 diastolic dysfunction. MRI of the brain Discharge home with instructions on maneuvers, antiemetics, advised to ambulate with care, home health care, follow-up with a primary care provider in 1 week Physical Exam Const: COMMON NORMALS: no acute distress and patient oriented x3 Resp: COMMON NORMALS: normal respiratory effort, No retractions, No use of accessory muscles and clear to auscultation bilaterally AUSCULTATION: clear to auscultation bilaterally Cardio: COMMON NORMALS: regular rate, regular rhythm, S1 normal heart sound present and S2 normal heart sound present RATE: regular rate RHYTHM: regular rhythm HEART SOUNDS: S1 normal heart sound present and S2 normal heart sound present GI: COMMON NORMALS: Normal to inspection, nondistended, normoactive bowel sounds present, Soft to palpation and non-tender PALPATION: Yes Soft to palpation Extremity: COMMON NORMALS: no pedal edema Neuro: COMMON NORMALS: patient oriented x3 Psych: COMMON NORMALS: mental status grossly normal Discharge Data Data Completed and Pending: Completed Studies During Hospitalization Category Date Time Status CT head wo con* [id number] Urgent Cat Scan 05/28/21 16:27 Completed XR chest 1V efe ble [id number] Stat Exams 05/28/21 10:13 Completed CV carotid duplex BI* [id number] Routine Ultrasound 05/29/21 16:27 Completed CV. echo complete * [id number] Routine Ultrasound 05/29/21 16:27 Completed Pending at discharge Category Date Time Status Complete Blood Co unt w/Auto AM LABS Lab 05/31/21 04:00 Ordered Comprehensive Met abolic Panel AM LA BS Lab 05/31/21 04:00 Ordered Magnesium AM LABS Lab 05/31/21 04:00 Ordered Phosphorus AM LAB S Lab 05/31/21 04:00 Ordered Urine Culture Sta t Lab 05/28/21 14:20 Results MR head wo con* [id number] Routine MRI 05/30/21 09:23 Ordered Labs from last 24 hours 05/30/21 05/30/21 05/30/21 06:22 05:00 05:00 WBC 8.5 RBC 4.00 L Hgb 12.1 Hct 37.1 MCV 92.8 MCH 30.3 MCHC 32.6 RDW 12.8 Plt Count 277 MPV 10.6 H Neut % (Auto) 56.7 Lymph % (Auto) 26.0 [place] % (Auto) 11.5 Eos % (Auto) 4.4 Baso % (Auto) 1.2 Neut # (Auto) 4.84 Lymph # (Auto) 2.2 [place] # (Auto) 1.0 H Eos # (Auto) 0.4 Baso # (Auto) 0.1 Nucleated RBC % (a uto) 0 Nucleated RBCs # 0.0 Sodium 133 L Potassium 4.4 Chloride 99 Carbon Dioxide 25 Anion Gap 13.4 BUN 18 Creatinine 0.6 GFR Calculation Not Reportable Glucose 164 H POC Glucose 181 H Calculated Osmolal ity 282 L Calcium 8.6 Phosphorus 2.4 L Magnesium 1.6 L Total Bilirubin 0.2 AST 21 ALT 15 Alkaline Phosphata se 84 Total Protein 6.5 L Albumin 3.3 L Globulin 3.2 05/29/21 05/29/21 05/29/21 20:18 16:37 11:01 WBC RBC Hgb Hct MCV MCH MCHC RDW Plt Count MPV Neut % (Auto) Lymph % (Auto) [place] % (Auto) Eos % (Auto) Baso % (Auto) Neut # (Auto) Lymph # (Auto) [place] # (Auto) Eos # (Auto) Baso # (Auto) Nucleated RBC % (a uto) Nucleated RBCs # Sodium Potassium Chloride Carbon Dioxide Anion Gap BUN Creatinine GFR Calculation Glucose POC Glucose 219 H 154 H 225 H Calculated Osmolal ity Calcium Phosphorus Magnesium Total Bilirubin AST ALT Alkaline Phosphata se Total Protein Albumin Globulin Vitals: Last Vital Signs Temp 97.8 F 05/30/21 07:44 Pulse 75 05/30/21 07:44 Resp 18 05/30/21 07:44 BP 135/69 05/30/21 09:06 Pulse Ox 100 05/30/21 07:44 Discharge Plan Discharge Patient Disposition: Home Condition: Stable Prescriptions: New amlodipine 10 mg Tablet 10 mg PO Q24H 30 Days Qty: 30 RF: 0 meclizine 25 mg Tablet 25 mg PO TID PRN (Reason: Dizziness) 15 Days Qty: 45 RF: 0 sulfamethoxazole-trimethoprim [Bactrim DS] 800-160 mg tablet 1 tab PO Q12H 3 Days Qty: 6 RF: 0 Continued calcium 600 mg Capsule 1,200 mg PO DAILY RF: 0 gabapentin 600 mg tablet 600 mg PO BID RF: 0 artificial tears solution Drops 1 drp OPHTHALMIC (EYE) . DIRECTED RF: 0 Vitamin B-12 1,000 mcg Tablet 1,000 mcg PO BID RF: 0 pioglitazone 45 mg tablet 45 mg PO DAILY RF: 0 Aspir-81 81 mg Tablet,Delayed Release (Dr/Ec) 81 mg PO DAILY RF: 0 Synthroid 50 mcg tablet 50 mcg PO DAILY RF: 0 losartan 25 mg tablet 25 mg PO DAILY RF: 0 pravastatin 20 mg tablet 20 mg PO BEDTIME RF: 0 oxybutynin chloride 5 mg Tablet 5 mg PO .BID SOMETIMES TID RF: 0 Fish Oil Capsule 2,000 mg PO BID RF: 0 ferrous sulfate 27 mg iron Tablet 27 mg PO BID RF: 0 Lantus Solostar U-100 Insulin 100 unit/mL (3 mL) insulin pen 10 unit SUBCUT BEDTIME RF: 0 Glucosamine Chondroitin 550-30-1 mg Capsule 1 cap PO BID RF: 0 Discharge Orders: Discharge Order (Routine); Ordered 05/30/21 Ordered By: Marcos Osei Referrals: [facility] [Outside] ([place] and [facility] were not able to service you for Home Health. [facility] has accepted and will be seeing you in a few days for Home Health.) Jimi Lynn DO [Primary Care Provider] - Discharge Diet: Diabetic Discharge Activity: Increase activity as tolerated Patient Instructions: Opioid Safety Activity Restrictions/Additional Instructions: -For vertigo episodes please use maneuvers that were taught to you during her hospitalization, and pronounced that were given to you -Meclizine as needed -Bactrim for UTI as above -Follow-up with primary care provider in 1 week -Continue to hydrate well with electrolyte balance fluids Discharge Attestations Time Spent in Discharge Care*: less than 30 min Quality Metrics Clinical Quality Measures During this hospital stay, did patient experience: None Coding Level of Care Code Acute Chg FW DC note Exam Detailed Diagnoses Acute hyponatremia E87.1 Vertigo R42 Vomiting R11.10 Hypothyroidism E03.9 Type 2 diabetes mellitus with diabetic polyneuropathy E11.42 UTI (urinary tract infection) N39.0
[2021-05-30 11:25] LABS: Glucose Point of Care 275 mg/dL (70-110)
[2021-05-30] MEDS: cefTRIAXone 1,000 MG in sodium chloride 0.9% (plus) 50 ML 100 MG IV (13:45)
[2021-05-30 16:54] LABS: Glucose Point of Care 180 mg/dL (70-110)
== END 2021-05-30 17:00 | disposition home health service (06) | DRG 149 ==
LOC: ER 13:23 → ER IP 15:09 → MEDSURG 15:36
PROVIDERS: Admitting Provider Family Medicine; Emergency Provider Emergency Medicine; PCP Internal Medicine; Visit Provider Family Medicine
DX: H81.10 Benign paroxysmal vertigo, unspecified ear (principal); E87.1 Hypo-osmolality and hyponatremia; N39.0 Urinary tract infection, site not specified; I10 Essential (primary) hypertension; E03.9 Hypothyroidism, unspecified; E11.42 Type 2 diabetes mellitus with diabetic polyneuropathy; E86.0 Dehydration; Z79.82 Long term (current) use of aspirin; Z79.4 Long term (current) use of insulin
CPT/HCPCS: 36415; 36416; 70450; 70551; 71045; 80048; 80053; 81001; 82962; 83690; 83735; 84100; 84443; 84484; 85025; 87077; 87086; 87186; 93005; 93306; 93880; 94664; 96361; 96372; 96374; 97162; 97165; 97530; 99285; G0378; J0696; J1650; J1815 ×2; J7030; J8597

== ENCOUNTER 2022-04-26 22:52 | Observation (INO) | payer MEDICARE, SELFPAY ==
[2022-04-26 22:55] VITALS: BP 185/71; PULSE 89; RESP 20; TEMP 36.5; O2SAT 98; BMI 40.7
--- NOTE | 2022-04-26 23:00 | ED_ITS ---
HPI - Weakness General: Chief complaint: Weakness Stated complaint: WEAKNESS Time Seen by Provider: 04/26/22 23:00 History of Present Illness: Ms. Bird is an 86-year-old lady with si gnificant past medical history of diabetes who presents to the emergency department due to generalized symptoms. Onset of symptoms was 2 or 3 days ago and gradual. She endorses generalized malaise, nausea, vomiting, and decreased p.o. intake. She feels generalized weakness without focality. Overall course of symptoms has been worsening. Intensity is moderate. She correlates this with starting steroids for her rash which has subsequently improved. No other specific changes in health, exacerbating, or alleviating factors identified. Onset (ago): day(s) Duration: progressively worsening Severity: moderate Associated symptoms: Reports nausea and vomiting Review of Systems General: Reports: 10 or more systems reviewed and unremarkable except in HPI and below GI: Reports: nausea and vomiting [facility] ED PFSH: Medical History (Updated 04/29/22 @ 00:01 by ) High cholesterol Hypertension Hypothyroidism Type 2 diabetes mellitus with diabetic polyneuropathy Surgical History History of cholecystectomy Family History Mother Cancer CAD (coronary artery disease) Father Diabetes Social History Smoking and tobacco status: never smoked Household members: none Current occupational status: retired Physical Exam Const: COMMON NORMALS: patient oriented x3 and alert GENERAL APPEARANCE: cooperative, well developed and ill appearing (Somewhat) HENMT: COMMON NORMALS: normocephalic and atraumatic HEAD & SCALP: normocep halic and atraumatic Eye: COMMON NORMALS: conjunctivae normal CONJUNCTIVA: Yes conjunctivae normal SCLERA: sclerae normal Neck/C-Spine: COMMON NORMALS: supple GENERAL: Yes trachea midline Resp: COMMON NORMALS: normal respiratory effort and clear to auscultation bilaterally EFFORT & INSPECTION: Yes able to speak in complete sentences AUSCULTATION: clear to auscultation bilaterally Cardio: COMMON NORMALS: regular rate and regular rhythm RATE: regular rate RHYTHM: regular rhythm GI: COMMON NORMALS: Soft to palpation PALPATION: Yes Soft to palpation and No Tenderness to palpation present (GI) PERCUSSION: normal to percussion Extremity: GENERAL: Yes normal exam except as noted and No edema Neuro: COMMON NORMALS: patient oriented x3, CN's II-XII intact bilaterally, moves all extremities, no focal motor deficits and no sensory deficits noted SENSORIUM/ORIENTATION: Yes alert and No Orientation impaired Psych: COMMON NORMALS: mental status grossly normal and Normal thought process present THOUGHT PROCESS: Normal thought process present Course ED course: - Patient was seen and evaluated by me at bedside - Patient placed on cardiac monitors, IV access obtained - Initial evaluation notable for exam as above - Labs and xrays personally interpreted by me. EKG showing sinus rhythm with interventricular conduction delay. No STEMI. Nonspecific ST segment abnormalities likely related to interventricular conduction delay. - Fluids given. Antiemetic given - Labs notable for no leukocytosis, normal hemoglobin. Metabolic panel with evidence of dehydration, hyperglycemia present without evidence of DKA. Urinary tract infection present. - Antibiotics given. - Imaging notable for left lung infiltrate concerning for pneumonia. Patient treated for CAP in addition to urinary tract infection. CT head as well as CT abdomen and pelvis negative for acute pathology to explain symptoms. - Upon serial reexamination after treatment the patient was only mildly improved. Patient was alone and given severity of symptoms he is unable to perform ADLs. - Based on patient history, evaluation, and testing as interpreted the most likely cause of the patient's condition is UTI and pneumonia with dehydration requiring observation in the hospital and further treatment - The results of ED evaluation were discussed with the patient including plan for admission due to requirement for level of care not available if discharged to prevent significant worsening/deterioration. - Admitting service was contacted and Dr Collins with the hospitalist service agreed to admit the patient - Patient was admitted without further deterioration or significant events. Note: Click bubbles or prepopulated king in note writing are used for assistance with data collection and billing and are inherently more limited than narrative and other text portions of this note. Please use narrative for additional clinical history and defer to narrative/free test for any case of contradictory information. If information appears in only free text or click bubble it should be considered present or absent as reported. Please contact note flex o writer operator for clarifications of clinical information or contradictory information. MDM is a brief summary, contradictory or erroneous seeming information should be clarified and full note should be reviewed. Vital Signs: Vital signs: Vital Signs Temperature 98.0 F 04/28/22 14:00 Pulse Rate 92 04/28/22 14:00 Respiratory Rate 18 04/28/22 14:00 Blood Pressure 173/77 04/28/22 14:00 Pulse Oximetry 96 04/28/22 14:00 MDM - Weakness Medical Decision Making 86-year-old lady presenting with generalized symptoms. Patient typically functional at home and lives alone. Patient found to have a pneumonia and urinary tract infection with evidence of dehydration. Admitted to observation with IV antibiotics for further management. Medical Records I reviewed the patient's medical records. Lab Data I reviewed the patient's lab results. : 04/28/22 02:26 04/28/22 02:26 Radiology Impressions Chest X-Ray 04/26/22 23:44 IMPRESSION: Left lung base subsegmental atelectasis or infiltrate. Abdomen/Pelvis CT 04/27/22 00:29 IMPRESSION: No acute findings. Head CT 04/27/22 00:29 IMPRESSION: No acute intracranial abnormality. Laboratory Results WBC 8.0 10^3/uL (4.0-10.0) 04/26/22 23:10 RBC 3.98 10^6/uL (4.1-5.3) L 04/26/22 23:10 Hgb 12.3 g/dL (11.5-15.3) 04/26/22 23:10 Hct 35.6 % (37.0-47.0) L 04/26/22 23:10 MCV 89.4 fl (81-99) 04/26/22 23:10 MCH 30.9 pg (28.0-34.0) 04/26/22 23:10 MCHC 34.6 g/dL (30.0-36.0) 04/26/22 23:10 RDW 13.2 % (12.1-15.1) 04/26/22 23:10 Plt Count 296 10^3/cmm (130-400) 04/26/22 23:10 MPV 10.0 fL (7.4-10.4) 04/26/22 23:10 Neut % (Auto) 61.2 % 04/26/22 23:10 Lymph % (Auto) 27.1 % 04/26/22 23:10 [place] % (Auto) 8.5 % 04/26/22 23:10 Eos % (Auto) 2.1 % 04/26/22 23:10 Baso % (Auto) 0.8 % 04/26/22 23:10 Neut # (Auto) 4.88 10^3/uL (1.8-7.7) 04/26/22 23:10 Lymph # (Auto) 2.2 10^3/uL (0.8-4.8) 04/26/22 23:10 [place] # (Auto) 0.7 10^3/uL (0.2-0.9) 04/26/22 23:10 Eos # (Auto) 0.2 10^3/uL (0.0-0.8) 04/26/22 23:10 Baso # (Auto) 0.1 10^3/uL (0.0-0.1) 04/26/22 23:10 Nucleated RBC % (auto) 0 % 04/26/22 23:10 Nucleated RBCs # 0.0 /100WBC 04/26/22 23:10 Sodium 129 mmol/L (136-145) L 04/26/22 23:10 Potassium 3.5 mmol/L (3.5-5.1) 04/26/22 23:10 Chloride 94 mmol/L (98-107) L 04/26/22 23:10 Carbon Dioxide 24 mmol/L (22-29) 04/26/22 23:10 Anion Gap 14.5 (5-19) 04/26/22 23:10 BUN 11 mg/dL (8-23) 04/26/22 23:10 Creatinine 0.6 mg/dL (0.5-0.9) 04/26/22 23:10 GFR Calculation Not Reportable 04/26/22 23:10 Glucose 225 mg/dL (65-115) H 04/26/22 23:10 POC Glucose 220 mg/dL (70-110) H 04/26/22 23:05 Calculated Osmolality 274 mOsm/kg (285-295) L 04/26/22 23:10 Calcium 8.9 mg/dL (8.5-10.5) 04/26/22 23:10 Total Bilirubin 0.2 mg/dL (0.15-1.2) 04/26/22 23:10 AST 19 U/L (0-32) 04/26/22 23:10 ALT 16 U/L (0-33) 04/26/22 23:10 Alkaline Phosphatase 84 IU/L (35-105) 04/26/22 23:10 Troponin T Baseline 20 ng/L (0-10) H 04/26/22 23:10 Troponin T 120 Minute 26.46 ng/L (0-10) H 04/27/22 01:40 Delta Troponin T 6.46 ABS# (0-10) 04/27/22 01:40 NT-Pro-B Natriuret Pep 941 pg/mL (0-450) H 04/26/22 23:10 Total Protein 7.2 g/dL (6.6-8.7) 04/26/22 23:10 Albumin 3.9 g/dL (3.5-5.2) 04/26/22 23:10 Globulin 3.3 g/dL (1.3-4.6) 04/26/22 23:10 TSH 2.04 uIU/mL (0.27-4.20) 04/26/22 23:10 Urine Color Colorless (Yellow) 04/26/22 23:28 Urine Appearance Sl hazy (CLEAR) 04/26/22 23:28 Urine pH 7 (5-7) 04/26/22 23:28 Ur Specific [place] 1.005 (1.005-1.030) 04/26/22 23:28 Urine Protein 1+ (Negative) H 04/26/22 23:28 Urine Glucose (UA) 1+ (Normal) H 04/26/22 23:28 Urine Ketones Negative (Negative) 04/26/22 23:28 Urine Blood Neg (Negative) 04/26/22 23:28 Urine Nitrate Negative (Negative) 04/26/22 23:28 Urine Bilirubin Neg (Negative) 04/26/22 23:28 Urine Urobilinogen Norm mg/dL (Negative) 04/26/22 23:28 Ur Leukocyte Esterase Negative (Negative) 04/26/22 23:28 Urine RBC 0-4 /hpf (0-2) H 04/26/22 23:28 Urine WBC 25-40 /hpf (0-5) H 04/26/22 23:28 Ur Squamous Epith Cells 0-4 /hpf (0-5) H 04/26/22 23:28 Amorphous Sediment Not Reportable 04/26/22 23:28 Urine Bacteria 4+ /hpf (NONE) H 04/26/22 23:28 Coronavirus 229E (PCR) Not detected (NOT DETECT) 04/27/22 01:40 SARS-CoV-2 (PCR) Not detected (NOT DETECT) 04/27/22 01:40 Discharge Plan Discharge Patient Disposition: Placed in Observation Admit Provider: Ximena Collins Clinical Impression: UTI (urinary tract infection), Pneumonia, Hypoxia Discharge Diet: Cardiac Discharge Activity: Resume usual activity Coding Level of Care Code ED Cream Gatherer for Chg Fwd Exam Comprehensive
--- NOTE | 2022-04-26 23:01 | ECG_ITS ---
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 Measurements Intervals [place] Rate: 87 P: 64 WA: 175 QRS: 85 QRSD: 145 T: 1 QT: 400 QTc: 484 Interpretive Statements SINUS RHYTHM Right bundle branch block POSSIBLE LATERAL MYOCARDIAL INFARCTION , OF INDETERMINATE AGE [30 ms Q WAVE IN I/aVL/V5/V6] Compared to ECG 05/28/2021 21:00:22 Myocardial infarct finding now present Atrial abnormality no longer present Electronically Signed On 04-28-2022 12:15:29 CDT by Tree Lopez M.D. [id number]
[2022-04-26 23:08] LABS: Glucose Point of Care 220 mg/dL (70-110)
[2022-04-26 23:14] LABS: Basophils # 0.1 10^3/uL (0.0-0.1); Basophils % 0.8 %; Eosinophils # 0.2 10^3/uL (0.0-0.8); Eosinophils % 2.1 %; Hematocrit 35.6 % (37.0-47.0); Hemoglobin 12.3 g/dL (11.5-15.3); Lymphocytes # 2.2 10^3/uL (0.8-4.8); Lymphocytes % 27.1 %; Mean Corpuscular HGB Conc 34.6 g/dL (30.0-36.0); Mean Corpuscular Hemoglobin 30.9 pg (28.0-34.0); Mean Corpuscular Volume 89.4 fl (81-99); Monocytes # 0.7 10^3/uL (0.2-0.9); Monocytes % 8.5 %; Neutrophils # 4.88 10^3/uL (1.8-7.7); Neutrophils % 61.2 %; Nucleated Red Blood Cells % 0 %; Platelet Count 296 10^3/cmm (130-400); Red Blood Count 3.98 10^6/uL (4.1-5.3); Red Cell Distribution Width 13.2 % (12.1-15.1)
[2022-04-26 23:31] LABS: Alanine Aminotransferase 16 U/L (0-33); Albumin Level 3.9 g/dL (3.5-5.2); Alkaline Phosphatase 84 IU/L (35-105); Anion Gap 14.5 (5-19); Aspartate Amino Transferase 19 U/L (0-32); Blood Urea Nitrogen 11 mg/dL (8-23); Calcium 8.9 mg/dL (8.5-10.5); Carbon Dioxide 24 mmol/L (22-29); Chloride 94 mmol/L (98-107); Globulin 3.3 g/dL (1.3-4.6); Glucose 225 mg/dL (65-115); Osmolality Calculated 274 mOsm/kg (285-295); Potassium 3.5 mmol/L (3.5-5.1); Sodium 129 mmol/L (136-145); Total Bilirubin 0.2 mg/dL (0.15-1.2); Total Protein 7.2 g/dL (6.6-8.7)
[2022-04-26 23:32] LABS: Troponin(5th) Baseline 20 ng/L (0-10)
[2022-04-26 23:43] LABS: NT Pro B Type Natriuretic Pept 941 pg/mL (0-450); Thyroid Stimulating Hormone 2.04 uIU/mL (0.27-4.20)
--- NOTE | 2022-04-26 23:44 | XRR_ITS ---
PROCEDURE INFORMATION: Exam: XR Chest Exam date and time: 04/26/2022 11:52 PM Age: 86 years old Clinical indication: Other: Weakness; Additional info: New oxygen req TECHNIQUE: Imaging protocol: Radiologic exam of the chest. Views: 1 view. COMPARISON: 1. CR (CHEST, ) 2021-05-28 10:24 2. CR Chest 2 views* [id number] 2015-12-08 10:[address] abdomen pelvis w con* [id number] 2019-08-08 22:17 4. CR Shoulder 2+ views LEFT* [id number] 2015-12-08 10:34 FINDINGS: Limitations: Limited by patient's body habitus. Lungs: Left lung base subsegmental atelectasis or infiltrate. Pleural spaces: Unremarkable. No pleural effusion. No pneumothorax. Heart/Mediastinum: Unremarkable. No cardiomegaly. Bones/joints: Unremarkable. XR/XR chest 1V portable [id number] IMPRESSION: Left lung base subsegmental atelectasis or infiltrate.
[2022-04-26 23:46] LABS: Add Urine Culture? Yes; Add Urine Microscopic? YES; Bacteria Urine 4+ /hpf; Bilirubin Urine Neg (Negative); Blood Urine Neg (Negative); Glucose Urine UA 1+ (Normal); Ketones Urine Negative (Negative); Leukocyte Esterase Urine Negative (Negative); Nitrate Urine Negative (Negative); Protein Urine 1+ (Negative); RBC Urine 0-4 /hpf (0-2); Specific Gravity, Urine 1.005 (1.005-1.030); Squamous Epithelial Cell Urine 0-4 /hpf (0-5); Urine Appearance SL Hazy (CLEAR); Urine Color Colorless (Yellow); Urobilinogen Urine Norm (Negative); WBC Urine 25-40 /hpf (0-5); pH Urine 7 (5-7)
[2022-04-27] VITALS (12 sets, daily range): BP systolic 167–190; BP diastolic 64–80; PULSE 77–93; RESP 16–20; TEMP 36.5–37.1; O2SAT 92–99
--- NOTE | 2022-04-27 00:29 | CTR_ITS ---
PROCEDURE INFORMATION: Exam: CT Head Without Contrast Exam date and time: 04/27/2022 12:55 AM Age: 86 years old Clinical indication: Walking, difficulty; Additional info: AMS TECHNIQUE: Imaging protocol: Computed tomography of the head without contrast. Radiation optimization: All CT scans at this facility use at least one of these dose optimization techniques: automated exposure control; mA and/or kV adjustment per patient size (includes targeted exams where dose is matched to clinical indication); or iterative reconstruction. COMPARISON: MR head wo con* [id number] 05/30/2021 12:43 PM RADIATION DOSE METRICS: Total DLP (mGy-cm): 777.5 FINDINGS: Brain: There is moderate cerebral atrophy. No hemorrhage. Unremarkable white matter. No mass effect. Cerebral ventricles: No ventriculomegaly. Paranasal sinuses: Visualized sinuses are unremarkable. No fluid levels. Mastoid air cells: Visualized mastoid air cells are well aerated. Bones/joints: Unremarkable. No acute fracture. Soft tissues: Unremarkable. CT/CT head wo con* [id number] IMPRESSION: No acute intracranial abnormality.
--- NOTE | 2022-04-27 00:29 | CTR_ITS ---
PROCEDURE INFORMATION: Exam: CT Abdomen And Pelvis Without Contrast Exam date and time: 04/27/2022 12:58 AM Age: 86 years old Clinical indication: Nausea and vomiting; Additional info: N/v/d TECHNIQUE: Imaging protocol: Computed tomography of the abdomen and pelvis without contrast. Radiation optimization: All CT scans at this facility use at least one of these dose optimization techniques: automated exposure control; mA and/or kV adjustment per patient size (includes targeted exams where dose is matched to clinical indication); or iterative reconstruction. COMPARISON: 1. CT abdomen pelvis w con* [id number] 2019-08-08 22:17 2. CR (CHEST, ) 2022-04-26 23:52 RADIATION DOSE METRICS: Total DLP (mGy-cm): 1786.72 FINDINGS: Limitations: Study is limited by the absence of contrast. Diaphragm: Small hiatal hernia. Liver: Normal. No mass. Gallbladder and bile ducts: Cholecystectomy. Pancreas: Normal. No ductal dilation. Spleen: Normal. No splenomegaly. Adrenal glands: Normal. No mass. Kidneys and ureters: Punctate nonobstructing right renal calculus. Stomach and bowel: Unremarkable. No obstruction. No mucosal thickening. Appendix: Normal appendix. Intraperitoneal space: Unremarkable. No free air. No significant fluid collection. Vasculature: Moderate aortic and branch vessel calcifications. Lymph nodes: Unremarkable. No enlarged lymph nodes. Urinary bladder: Unremarkable as visualized. Reproductive: Hysterectomy. Bones/joints: Lower lumbar moderate severe stenosis. Right L4-L5 subarticular and foraminal disc extrusion, correlate for right L4 and 5 radiculopathy. Soft tissues: Unremarkable. CT/CT abdomen pelvis wo con [id number] IMPRESSION: No acute findings.
[2022-04-27] MEDS: cefTRIAXone 1,000 MG in sodium chloride 0.9% (plus) 50 ML 100 MG IV ×2 (00:40→22:31)
--- NOTE | 2022-04-27 01:01 | ECG_ITS ---
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 [id number]
[2022-04-27 02:03] LABS: Troponin 5 2HR 26.46 ng/L (0-10)
[2022-04-27 02:05] LABS: Troponin 5 2HR Delta 6.46 ABS# (0-10)
[2022-04-27] MEDS: doxycycline 100 MG in sodium chloride 0.9% (plus) 100 ML IV (02:45)
[2022-04-27] MEDS: sodium chloride 0.9% 1,000 ML 999 ML IV (02:45)
--- NOTE | 2022-04-27 05:01 | ECG_ITS ---
[facility] Test Date: 2022-04-27 Pat Name: Ryanne Bird Department: Room: Gender: Female Database Modeler: : 1935 Requested By: Alonzo Quan Order Number: [id number] Ciara MD: Tree Lopez M.D. Measurements Intervals [place] Rate: 89 P: 54 ME: 167 QRS: 71 QRSD: 150 T: -14 QT: 395 QTc: 483 Interpretive Statements SINUS RHYTHM Right bundle branch block PROBABLE LATERAL MYOCARDIAL INFARCTION , OF INDETERMINATE AGE [35 ms Q WAVE IN I/aVL/V5/V6] Compared to ECG 04/27/2022 01:07:52 No significant changes Electronically Signed On 04-28-2022 12:31:13 CDT by Tree Lopez M.D. [id number]
[2022-04-27 05:08] LABS: Adenovirus Not Detected (NOT DETECT); Chlamydia Pneumoniae Not Detected (NOT DETECT); Coronavirus 229E,HKU1,NL63,OC4 Not Detected (NOT DETECT); Human Metapneumovirus Not Detected (NOT DETECT); Human Rhinovirus/Enterovirus Not Detected (NOT DETECT); Influenza A Not Detected (NOT DETECT); Influenza A H1 Not Detected (NOT DETECT); Influenza A H1-2009 Not Detected (NOT DETECT); Influenza A H3 Not Detected (NOT DETECT); Influenza B Not Detected (NOT DETECT); Mycoplasma Pneumoniae Not Detected (NOT DETECT); Parainfluenza Virus Type 1 Not Detected (NOT DETECT); Parainfluenza Virus Type 2 Not Detected (NOT DETECT); Parainfluenza Virus Type 3 Not Detected (NOT DETECT); Parainfluenza Virus Type 4 Not Detected (NOT DETECT); Respiratory Syncytial Virus A Not Detected (NOT DETECT); Respiratory Syncytial Virus B Not Detected (NOT DETECT); SARS-COV-2 Not Detected (NOT DETECT)
[2022-04-27] MEDS: ondansetron 2 mg/ML SDV 2 mL 4 MG IVP (05:56)
[2022-04-27 07:00] LABS: Troponin 5 6HR 25.94 ng/L (0-10)
[2022-04-27 07:14] LABS: Troponin 5 6HR Delta 5.94 ng/L (0-12)
--- NOTE | 2022-04-27 07:54 | PM.HP ---
Providers/Chief Complaint Admitting Physician: Rodrigue Solis MD Primary Care Provider: Jimi Lynn DO Chief Complaint: Weakness History of Present Illness Ryanne Bird is a 86 year old female presenting to the emergency department with complaints of nausea for the last 3 days. She states she has vomited perhaps once. She has had no fever, cough, abdominal pain, diarrhea, blood in stool, hematemesis, black or tarry stool. She thought this might be due to steroid she taken for a rash which she thought was dry skin. However, she only took 2 doses. She states the nausea can be intermittent. No significant headache. Has not eaten or drank much in the last several days. Feels like nausea is better currently. Has been generally weak. Usually walks with a walker. No dysuria. No new medications other than the steroid. Review of Systems General: Reports: 10 or more systems reviewed and unremarkable except in HPI and below Const: Reports: fatigue and malaise; Denies: fever(s) Eyes: Denies: change in vision ENMT: Denies: throat pain Card: Denies: chest pain Resp: Denies: dyspnea GI: Reports: nausea and vomiting; Denies: abdominal pain, hematemesis, hematochezia or melena : Denies: flank pain Musc: Denies: neck pain Skin/Breast: Reports: rash Neuro: Denies: headache(s) Psych: Denies: anxiety or depression Endo: Denies: polyuria Lazaro/Lymph: Denies: easy bruising All/Imm: Denies: urticaria Medications/Allergies Home Medications Medication Instructions Recorded Confirmed Last Taken Type artificial tears solution eye drops 1 drp OPHTHALMIC (EYE) . DIRECTED 05/28/21 05/28/21 Unknown History aspirin 81 mg tablet,delayed 81 mg PO DAILY 05/28/21 05/28/21 Unknown History release calcium 600 mg capsule 1,200 mg PO DAILY 05/28/21 05/28/21 Unknown History cyanocobalamin (vitamin B-12) 1,000 mcg PO BID 05/28/21 05/28/21 Unknown History 1,000 mcg tablet (Vitamin B-12) ferrous sulfate 27 mg iron tablet 27 mg PO BID 05/28/21 05/28/21 Unknown History gabapentin 600 mg tablet 600 mg PO BID 05/28/21 05/28/21 Unknown History glucosamine sulf dipot 1 cap PO BID 05/28/21 05/28/21 Unknown History chlr,msm,chond 550 mg-C 30 mg-jose ramon 1 mg capsule (Glucosamine Chondroitin) insulin glargine 100 unit/mL (3 10 unit SUBCUT BEDTIME 05/28/21 05/28/21 05/26/21 History mL) subcutaneous pen (Lantus Solostar U-100 Insulin) levothyroxine 50 mcg tablet 50 mcg PO DAILY 05/28/21 05/28/21 Unknown History (Synthroid) losartan 25 mg tablet 25 mg PO DAILY 05/28/21 05/28/21 Unknown History omega-3 fatty acids 2,000 mg PO BID 05/28/21 05/28/21 Unknown History oxybutynin chloride 5 mg tablet 5 mg PO .BID SOMETIMES TID 05/28/21 05/28/21 Unknown History pioglitazone 45 mg tablet 45 mg PO DAILY 05/28/21 05/28/21 Unknown History pravastatin 20 mg tablet 20 mg PO BEDTIME 05/28/21 05/28/21 Unknown History Allergies Allergy/AdvReac Type Severity Reaction Status Date / Time No Known Allergies Allergy Verified 05/28/21 08:42 PFSH Acute PFSH: Medical History (Updated 04/27/22 @ 07:59 by Rodrigue Solis MD) High cholesterol Hypertension Hypothyroidism Type 2 diabetes mellitus with diabetic polyneuropathy Surgical History History of cholecystectomy Family History Mother Cancer CAD (coronary artery disease) Father Diabetes Social History Smoking and tobacco status: never smoked Household members: none Current occupational status: retired Vitals/I&O/Wt Last Vital Signs Temp 98.7 F 04/27/22 02:52 Pulse 91 04/27/22 03:30 Resp 20 H 04/27/22 03:30 BP 167/64 04/27/22 03:30 Pulse Ox 96 04/27/22 05:48 04/26/22 04/27/22 04/27/22 22:59 06:59 14:59 Intake Total 1150 / 1150 Balance 1150 / 1150 Weight last 48 hrs Weight 111.13 kg Physical Exam Narrative: General exam is a white female, no apparent distress HEENT: Pupils equally round. Oropharynx clear. Neck is supple no lymphadenopathy thyromegaly Cardiovascular regular rate and rhythm without murmur, no S3 or S4 Lungs clear no wheezing or crackles Abdomen is soft. Positive bowel sounds. Obese. No obvious organomegaly. No tenderness exam is deferred Extremities no cyanosis clubbing. Trace edema. Cap refill brisk. Skin no rash Neuro no focal deficits. Data : 04/26/22 23:10 04/26/22 23:10 Other Labs: LFTs normal Troponin 20 with repeat of 26 and 6-hour of 25 BNP 941 Albumin 3.9 Calcium 8.9 Urinalysis 25-40 whites 4+ bacteria COVID PCR negative head CT no acute changes Chest x-ray question left lower lobe infiltrate CT abdomen and pelvis no obvious pneumonia lower lobes no acute findings EKG demonstrates intraventricular conduction delay, normal axis. A&P Assessment and plan (1) Nausea: Complaint of nausea over the last several days. This may be related to UTI, or have other etiology. She also has mild hyponatremia. I am not sure the steroid dosing, of which she took only 2 doses, impacted this much. Could also potentially be gastritis. At this point continue nausea control, hydration. IV antibiotics for UTI Repeat sodium As this is associated with weakness have physical therapy involved IV Protonix secondary to possibility of gastritis Check lipase Secondary to weakness check magnesium level Observation patient Close monitoring with initiation of diet. Status: Acute (2) UTI (urinary tract infection): Probable UTI present on admission Urine culture IV Rocephin 1 g every 24 hours Status: Acute (3) Type 2 diabetes mellitus with diabetic polyneuropathy: Mild sliding scale insulin Status: Acute (4) Hypothyroidism: TSH checked and normal. Continue thyroid hormone Status: Acute Plan Multiple other medical problems as outlined in past medical history Full code Lovenox for DVT prophylaxis Attestations Medical Necessity Statement*: Will require less than 2 midnight stay for treatment of weakness, UTI, nausea. 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
[2022-04-27 08:21] LABS: Alanine Aminotransferase 15 U/L (0-33); Albumin Level 3.5 g/dL (3.5-5.2); Alkaline Phosphatase 81 IU/L (35-105); Anion Gap 21.3 (5-19); Aspartate Amino Transferase 18 U/L (0-32); Blood Urea Nitrogen 8 mg/dL (8-23); Calcium 8.6 mg/dL (8.5-10.5); Carbon Dioxide 15 mmol/L (22-29); Chloride 100 mmol/L (98-107); Globulin 3.7 g/dL (1.3-4.6); Glucose 207 mg/dL (65-115); Lipase 11 U/L (13-60); Magnesium 1.6 mg/dL (1.7-2.3); Osmolality Calculated 280 mOsm/kg (285-295); Potassium 3.3 mmol/L (3.5-5.1); Sodium 133 mmol/L (136-145); Total Bilirubin 0.2 mg/dL (0.15-1.2); Total Protein 7.2 g/dL (6.6-8.7)
[2022-04-27 08:37] LABS: Basophils # 0.1 10^3/uL (0.0-0.1); Basophils % 0.6 %; Eosinophils # 0.2 10^3/uL (0.0-0.8); Eosinophils % 1.8 %; Hemoglobin 11.8 g/dL (11.5-15.3); Lymphocytes # 1.8 10^3/uL (0.8-4.8); Mean Corpuscular HGB Conc 34.7 g/dL (30.0-36.0); Mean Corpuscular Hemoglobin 30.6 pg (28.0-34.0); Mean Corpuscular Volume 88.1 fl (81-99); Monocytes # 0.7 10^3/uL (0.2-0.9); Monocytes % 7.7 %; Neutrophils # 6.32 10^3/uL (1.8-7.7); Neutrophils % 69.7 %; Nucleated Red Blood Cells % 0 %; Platelet Count 270 10^3/cmm (130-400); Red Blood Count 3.86 10^6/uL (4.1-5.3); Red Cell Distribution Width 13.1 % (12.1-15.1); White Blood Count 9.1 10^3/uL (4.0-10.0)
[2022-04-27 09:04] LABS: Cortisol Random 17.59 ug/dL (2.47-19.5)
[2022-04-27] MEDS: enoxaparin 40 mg/0.4 mL Syringe SUBCUT (10:47)
[2022-04-27] MEDS: gabapentin 300 mg Capsule 600 MG PO ×2 (10:47→18:00)
[2022-04-27] MEDS: potassium chloride ER 20 mEq Tablet 40 MEQ PO ×2 (10:48→14:49)
[2022-04-27] MEDS: pantoprazole 40 mg SDV IVP ×2 (10:48→23:01)
[2022-04-27] MEDS: aspirin 81 mg EC Tablet PO (10:48)
[2022-04-27] MEDS: sodium chloride 0.9% 1,000 ML 50 ML IV (10:51)
[2022-04-27] MEDS: magnesium sulfate premix 2 GM/50 ML PIGGYBACK IV (10:52)
[2022-04-27] MEDS: levothyroxine 50 mcg Tablet PO (10:52)
[2022-04-27 11:50] LABS: Glucose Point of Care 202 mg/dL (70-110)
[2022-04-27] MEDS: insulin lispro 100 unit/1 mL SUBCUT ×3 (12:18→21:33)
[2022-04-27 17:09] LABS: Glucose Point of Care 257 mg/dL (70-110)
[2022-04-27] MEDS: atorvastatin 40 mg Tablet 20 MG PO (21:33)
[2022-04-27 22:40] LABS: Glucose Point of Care 198 mg/dL (70-110)
[2022-04-28] VITALS (8 sets, daily range): BP systolic 145–199; BP diastolic 66–93; PULSE 76–92; RESP 15–18; TEMP 36.5–36.8; O2SAT 93–97
[2022-04-28 04:10] LABS: Basophils # 0.1 10^3/uL (0.0-0.1); Basophils % 0.8 %; Eosinophils # 0.4 10^3/uL (0.0-0.8); Eosinophils % 4.8 %; Hematocrit 32.1 % (37.0-47.0); Hemoglobin 10.7 g/dL (11.5-15.3); Lymphocytes # 2.6 10^3/uL (0.8-4.8); Lymphocytes % 29.3 %; Mean Corpuscular HGB Conc 33.3 g/dL (30.0-36.0); Mean Corpuscular Hemoglobin 30.2 pg (28.0-34.0); Mean Corpuscular Volume 90.7 fl (81-99); Mean Platelet Volume 10.7 fL (7.4-10.4); Monocytes # 0.9 10^3/uL (0.2-0.9); Monocytes % 9.7 %; Neutrophils # 4.91 10^3/uL (1.8-7.7); Neutrophils % 55.1 %; Nucleated Red Blood Cells % 0 %; Platelet Count 278 10^3/cmm (130-400); Red Blood Count 3.54 10^6/uL (4.1-5.3); Red Cell Distribution Width 13.4 % (12.1-15.1); White Blood Count 8.9 10^3/uL (4.0-10.0)
[2022-04-28 04:28] LABS: Alanine Aminotransferase 12 U/L (0-33); Albumin Level 3.3 g/dL (3.5-5.2); Alkaline Phosphatase 73 IU/L (35-105); Anion Gap 13.9 (5-19); Aspartate Amino Transferase 16 U/L (0-32); Blood Urea Nitrogen 17 mg/dL (8-23); Calcium 8.4 mg/dL (8.5-10.5); Carbon Dioxide 23 mmol/L (22-29); Chloride 100 mmol/L (98-107); Glucose 148 mg/dL (65-115); Osmolality Calculated 278 mOsm/kg (285-295); Potassium 4.9 mmol/L (3.5-5.1); Sodium 132 mmol/L (136-145); Total Bilirubin 0.2 mg/dL (0.15-1.2); Total Protein 6.3 g/dL (6.6-8.7)
[2022-04-28 06:44] LABS: Glucose Point of Care 196 mg/dL (70-110)
[2022-04-28] MEDS: amlodipine 10 mg Tablet PO (08:40)
[2022-04-28] MEDS: losartan 50 mg Tablet 25 MG PO (08:41)
[2022-04-28] MEDS: gabapentin 300 mg Capsule 600 MG PO (08:41)
[2022-04-28] MEDS: levothyroxine 50 mcg Tablet PO (08:41)
[2022-04-28] MEDS: aspirin 81 mg EC Tablet PO (08:41)
[2022-04-28] MEDS: insulin lispro 100 unit/1 mL SUBCUT ×2 (08:42→12:29)
[2022-04-28] MEDS: enoxaparin 40 mg/0.4 mL Syringe SUBCUT (09:47)
[2022-04-28] MEDS: pantoprazole 40 mg SDV IVP (09:47)
[2022-04-28 11:49] LABS: Glucose Point of Care 169 mg/dL (70-110)
--- NOTE | 2022-04-28 12:19 | PM.DCS ---
Discharge Providers Date of Admission: 04/27/22 06:30 Date of Discharge: April 28, 2022 Attending Provider at Admission: Ximena Collins MD Attending Provider at Discharge: Marcos Osei MD Primary Care Provider: Jimi Lynn DO Diagnoses at Discharge Discharge Diagnosis (1) Nausea: Status: Acute (2) UTI (urinary tract infection): Status: Acute (3) Type 2 diabetes mellitus with diabetic polyneuropathy: Status: Acute (4) Hypothyroidism: Status: Acute Reason for Visit Reason for Visit: Weakness Hospital Course Hospital Course his is a 85-year-old female with a past medical history of benign positional vertigo, hypertension, hyperlipidemia, insulin-dependent type 2 diabetes mellitus, who presents to [facility] due to complaints?of nausea She was admitted to [facility] for nausea, was found to have dehydration, also recent steroid use for a rash that could be contributing to nausea, UTI, hyponatremia, hypokalemia. Received IV hydration, broad-spectrum antibiotic therapy, clinically monitor. Patient overall clinically proved, nausea improved, sodium discharged 132. She will be discharged on instructions to drink plenty of electrolyte balance fluids. Discharged on ciprofloxacin for UTI, urine culture showing gram-negative rods. In terms of her rash, pruritic, on both arms, both legs, on her chest maculopapular, her only complaint is that it is pruritic, but she has had it for a long time, it was initially steroid responsive as she was prescribed by us steroids by Dr. Lynn, but she developed nausea and hyponatremia. For now I have held off on giving her steroids further Follow-up with Dr. Lynn or Dr. Anderson for punch biopsy. Physical Exam Const: COMMON NORMALS: no acute distress and patient oriented x3 Resp: COMMON NORMALS: normal respiratory effort, No retractions, No use of accessory muscles and clear to auscultation bilaterally AUSCULTATION: clear to auscultation bilaterally Cardio: COMMON NORMALS: regular rate, regular rhythm, S1 normal heart sound present and S2 normal heart sound present RATE: regular rate RHYTHM: regular rhythm HEART SOUNDS: S1 normal heart sound present and S2 normal heart sound present GI: COMMON NORMALS: Normal to inspection, nondistended, normoactive bowel sounds present, Soft to palpation and non-tender PALPATION: Yes Soft to palpation Extremity: COMMON NORMALS: no pedal edema Neuro: COMMON NORMALS: patient oriented x3 Psych: COMMON NORMALS: mental status grossly normal Skin: NARRATIVE SKIN EXAM: On arms, bilateral, bilateral legs, some on the chest, has a maculopapular rash, irregular borders, raised, slightly erythematous Discharge Data Studies Completed and Pending Completed Studies During Hospitalization Category Date Time Status CT abdomen pelvis wo con [id number] Urgent Cat Scan 04/27/22 00:[address] head wo con* [id number] Urgent Cat Scan 04/27/22 00:29 Completed XR chest 1V portable [id number] Urgent Exams 04/26/22 23:44 Completed Pending at discharge Category Date Time Status Urine Culture Stat Lab 04/26/22 23:28 Results Radiology Impressions Chest X-Ray 04/26/22 23:44 IMPRESSION: Left lung base subsegmental atelectasis or infiltrate. Abdomen/Pelvis CT 04/27/22 00:29 IMPRESSION: No acute findings. Head CT 04/27/22 00:29 IMPRESSION: No acute intracranial abnormality. Laboratory Results WBC 8.9 10^3/uL (4.0-10.0) 04/28/22 02:26 RBC 3.54 10^6/uL (4.1-5.3) L 04/28/22 02:26 Hgb 10.7 g/dL (11.5-15.3) L 04/28/22 02:26 Hct 32.1 % (37.0-47.0) L 04/28/22 02:26 MCV 90.7 fl (81-99) 04/28/22 02:26 MCH 30.2 pg (28.0-34.0) 04/28/22 02:26 MCHC 33.3 g/dL (30.0-36.0) 04/28/22 02:26 RDW 13.4 % (12.1-15.1) 04/28/22 02:26 Plt Count 278 10^3/cmm (130-400) 04/28/22 02:26 MPV 10.7 fL (7.4-10.4) H 04/28/22 02:26 Neut % (Auto) 55.1 % 04/28/22 02:26 Lymph % (Auto) 29.3 % 04/28/22 02:26 [place] % (Auto) 9.7 % 04/28/22 02:26 Eos % (Auto) 4.8 % 04/28/22 02:26 Baso % (Auto) 0.8 % 04/28/22 02:26 Neut # (Auto) 4.91 10^3/uL (1.8-7.7) 04/28/22 02:26 Lymph # (Auto) 2.6 10^3/uL (0.8-4.8) 04/28/22 02:26 [place] # (Auto) 0.9 10^3/uL (0.2-0.9) 04/28/22 02:26 Eos # (Auto) 0.4 10^3/uL (0.0-0.8) 04/28/22 02: Baso # (Auto) 0.1 10^3/uL (0.0-0.1) 04/28/22 02:26 Nucleated RBC % (auto) 0 % 04/28/22 02: Nucleated RBCs # 0.0 /100WBC 04/28/22 02:26 Sodium 132 mmol/L (136-145) L 04/28/22 02:26 Potassium 4.9 mmol/L (3.5-5.1) 04/28/22 02:26 Chloride 100 mmol/L (98-107) 04/28/22 02:26 Carbon Dioxide 23 mmol/L (22-29) 04/28/22 02:26 Anion Gap 13.9 (5-19) 04/28/22 02:26 BUN 17 mg/dL (8-23) 04/28/22 02:26 Creatinine 0.8 mg/dL (0.5-0.9) 04/28/22 02:26 GFR Calculation Not Reportable 04/28/22 02:26 Glucose 148 mg/dL (65-115) H 04/28/22 02:26 POC Glucose 169 mg/dL (70-110) H 04/28/22 11:18 Calculated Osmolality 278 mOsm/kg (285-295) L 04/28/22 02:26 Calcium 8.4 mg/dL (8.5-10.5) L 04/28/22 02:26 Magnesium 2.0 mg/dL (1.7-2.3) 04/28/22 02:26 Total Bilirubin 0.2 mg/dL (0.15-1.2) 04/28/22 02:26 AST 16 U/L (0-32) 04/28/22 02:26 ALT 12 U/L (0-33) 04/28/22 02:26 Alkaline Phosphatase 73 IU/L (35-105) 04/28/22 02:26 Troponin T Baseline 20 ng/L (0-10) H 04/26/22 23:10 Troponin T 120 Minute 26.46 ng/L (0-10) H 04/27/22 01:40 Delta Troponin T 6.46 ABS# (0-10) 04/27/22 01:40 Troponin T Hi Sens 6Hr 25.94 ng/L (0-10) H 04/27/22 06:30 Troponin T Hi Sens 6Hr Delta 5.94 ng/L (0-12) 04/27/22 06:30 NT-Pro-B Natriuret Pep 941 pg/mL (0-450) H 04/26/22 23:10 Total Protein 6.3 g/dL (6.6-8.7) L 04/28/22 02:26 Albumin 3.3 g/dL (3.5-5.2) L 04/28/22 02:26 Globulin 3.0 g/dL (1.3-4.6) 04/28/22 02:26 Lipase 11 U/L (13-60) L 04/27/22 06:30 TSH 2.04 uIU/mL (0.27-4.20) 04/26/22 23:10 Random Cortisol 17.59 ug/dL (2.47-19.5) 04/27/22 08:15 Urine Color Colorless (Yellow) 04/26/22 23:28 Urine Appearance Sl hazy (CLEAR) 04/26/22 23:28 Urine pH 7 (5-7) 04/26/22 23:28 Ur Specific [place] 1.005 (1.005-1.030) 04/26/22 23:28 Urine Protein 1+ (Negative) H 04/26/22 23:28 Urine Glucose (UA) 1+ (Normal) H 04/26/22 23:28 Urine Ketones Negative (Negative) 04/26/22 23:28 Urine Blood Neg (Negative) 04/26/22 23:28 Urine Nitrate Negative (Negative) 04/26/22 23:28 Urine Bilirubin Neg (Negative) 04/26/22 23:28 Urine Urobilinogen Norm mg/dL (Negative) 04/26/22 23:28 Ur Leukocyte Esterase Negative (Negative) 04/26/22 23:28 Urine RBC 0-4 /hpf (0-2) H 04/26/22 23:28 Urine WBC 25-40 /hpf (0-5) H 04/26/22 23:28 Ur Squamous Epith Cells 0-4 /hpf (0-5) H 04/26/22 23:28 Amorphous Sediment Not Reportable 04/26/22 23:28 Urine Bacteria 4+ /hpf (NONE) H 04/26/22 23:28 Coronavirus 229E (PCR) Not detected (NOT DETECT) 04/27/22 01:40 SARS-CoV-2 (PCR) Not detected (NOT DETECT) 04/27/22 01:40 Vitals Last Vital Signs Temp 98.2 F 04/28/22 11:20 Pulse 79 04/28/22 11:20 Resp 16 04/28/22 11:20 BP 173/77 04/28/22 11:20 Pulse Ox 96 04/28/22 11:20 Discharge Plan Discharge Patient Disposition: Home Condition: Stable Prescriptions: New ciprofloxacin HCl [Cipro] 250 mg tablet 250 mg PO BID 5 Days Qty: 10 0RF clonidine HCl 0.1 mg tablet 0.1 mg PO BID 30 Days Qty: 60 0RF amlodipine 10 mg Tablet 10 mg PO DAILY 30 Days Qty: 30 0RF Continued calcium 600 mg Capsule 1,200 mg PO DAILY 0RF artificial tears solution Drops 1 drp OPHTHALMIC (EYE) DAILY PRN (Reason: Dry Eyes) 0RF cyanocobalamin (vitamin B-12) [Vitamin B-12] 1,000 mcg Tablet 1,000 mcg PO BID 0RF pioglitazone 45 mg tablet 45 mg PO DAILY 0RF aspirin 81 mg Tablet,Delayed Release (Dr/Ec) 81 mg PO DAILY 0RF levothyroxine [Synthroid] 50 mcg tablet 50 mcg PO DAILY 0RF losartan 25 mg tablet 25 mg PO DAILY 0RF pravastatin 20 mg tablet 20 mg PO BEDTIME 0RF oxybutynin chloride 5 mg Tablet 5 mg PO BID 0RF insulin glargine [Lantus Solostar U-100 Insulin] 100 unit/mL (3 mL) insulin pen 10 unit SUBCUT BEDTIME 0RF Glucosamine Chondroitin 550-30-1 mg Capsule 1 cap PO BID 0RF Fish Oil 1,200 (144-216) mg Capsule 1 cap PO BID 0RF triamcinolone acetonide 0.1 % cream 1 applic TOPICAL DAILY PRN (Reason: Rash) 0RF Discharge Orders: Discharge Order (Routine); Ordered 04/28/22 Ordered By: Marcos Osei Referrals: Jamila Anderson DO [Physician] - 2 weeks (rash) Jimi Lynn DO [Primary Care Provider] - Discharge Diet: Cardiac Discharge Activity: Resume usual activity Patient Instructions: Opioid Safety Activity Restrictions/Additional Instructions: - Please hydrate well, drink plenty of electrolyte balance fluids -You have elevated blood pressure, use amlodipine 10 mg once daily -Can use clonidine 0.1 twice daily for elevated blood pressure -Use ciprofloxacin for UTI -For your rash please follow-up with Dr. Lynn, I have also sent off a referral to Dr. Anderson Discharge Attestations Time Spent in Discharge Care*: less than 30 min Quality Metrics Clinical Quality Measures [ No reported AMI, CVA or VTE this stay] Coding Level of Care Code Acute [facility] note Diagnoses Nausea R11.0 UTI (urinary tract infection) N39.0 Type 2 diabetes mellitus with diabetic polyneuropathy E11.42 Hypothyroidism E03.9
[2022-04-28] MEDS: cloNIDine 0.1 mg Tablet PO (12:29)
== END 2022-04-28 14:01 | disposition home or self-care (01) ==
LOC: ER 04-27 06:26 → MEDSURG 04-27 07:00
PROVIDERS: Internal Medicine; Admitting Provider Student in an Organized Health Care Education/Training Program; Emergency Provider Emergency Medicine; PCP Internal Medicine; Visit Provider Family Medicine
DX: R11.0 Nausea (principal); N39.0 Urinary tract infection, site not specified; E11.42 Type 2 diabetes mellitus with diabetic polyneuropathy; E03.9 Hypothyroidism, unspecified; E78.5 Hyperlipidemia, unspecified; Z79.82 Long term (current) use of aspirin; Z79.4 Long term (current) use of insulin; I45.10 Unspecified right bundle-branch block
CPT/HCPCS: 36415; 36416; 70450; 71045; 74176; 80053; 81001; 82533; 82962; 83690; 83735; 83880; 84443; 84484; 85025; 87077; 87086; 87186; 87635; 93005; 96365; 96366; 96367; 96372; 96375; 97116; 97161; 99285; C9113; G0378; J0696; J1650; J1815; J2405; J3475; J3490; J7030

== ENCOUNTER → 2022-11-19 14:08 | Outpatient (BNVA) | payer MEDICARE, SELFPAY | PROVIDERS: PCP Internal Medicine; Visit Provider Dermatology | DX: D48.9 Neoplasm of uncertain behavior, unspecified (principal); L29.9 Pruritus, unspecified; L81.4 Other melanin hyperpigmentation; L82.1 Other seborrheic keratosis | CPT/HCPCS: 88305 ==

== ENCOUNTER → 2023-01-01 08:07 | Outpatient (BNVA) | payer MEDICARE, SELFPAY | PROVIDERS: PCP Internal Medicine; Visit Provider Podiatrist Foot & Ankle Surgery | DX: E11.8 Type 2 diabetes mellitus with unspecified complications (principal); E11.42 Type 2 diabetes mellitus with diabetic polyneuropathy; L60.3 Nail dystrophy; L84 Corns and callosities; M21.41 Flat foot [pes planus] (acquired), right foot; M21.42 Flat foot [pes planus] (acquired), left foot; I73.9 Peripheral vascular disease, unspecified; M20.42 Other hammer toe(s) (acquired), left foot; M20.41 Other hammer toe(s) (acquired), right foot; Z79.4 Long term (current) use of insulin | CPT/HCPCS: 11721 ==

== ENCOUNTER → 2023-04-02 13:12 | Outpatient (BNVA) | payer MEDICARE, SELFPAY | PROVIDERS: PCP Internal Medicine; Visit Provider Podiatrist Foot & Ankle Surgery | DX: E11.42 Type 2 diabetes mellitus with diabetic polyneuropathy (principal); I73.9 Peripheral vascular disease, unspecified; L60.3 Nail dystrophy; L84 Corns and callosities; M20.41 Other hammer toe(s) (acquired), right foot; M20.42 Other hammer toe(s) (acquired), left foot; M21.41 Flat foot [pes planus] (acquired), right foot; M21.42 Flat foot [pes planus] (acquired), left foot; Z79.4 Long term (current) use of insulin | CPT/HCPCS: 11056; 11721 ==

== ENCOUNTER → 2023-05-09 14:15 | Outpatient (BNVA) | payer MEDICARE, SELFPAY | PROVIDERS: PCP Internal Medicine; Visit Provider Dermatology | DX: L57.0 Actinic keratosis (principal); L82.1 Other seborrheic keratosis; L81.4 Other melanin hyperpigmentation; D69.2 Other nonthrombocytopenic purpura; Z85.828 Personal history of other malignant neoplasm of skin | CPT/HCPCS: 17000; 99213 ==

== ENCOUNTER → 2023-07-02 13:12 | Outpatient (BNVA) | payer MEDICARE, SELFPAY | PROVIDERS: PCP Internal Medicine; Visit Provider Podiatrist Foot & Ankle Surgery | DX: L60.8 Other nail disorders (principal); E11.42 Type 2 diabetes mellitus with diabetic polyneuropathy; L60.3 Nail dystrophy; L84 Corns and callosities; M21.41 Flat foot [pes planus] (acquired), right foot; M21.42 Flat foot [pes planus] (acquired), left foot; I73.9 Peripheral vascular disease, unspecified; M20.41 Other hammer toe(s) (acquired), right foot; M20.42 Other hammer toe(s) (acquired), left foot; Z79.4 Long term (current) use of insulin | CPT/HCPCS: 11056; 11721 ==

== ENCOUNTER → 2023-10-01 15:36 | Outpatient (BNVA) | payer MEDICARE, SELFPAY | PROVIDERS: PCP Internal Medicine; Visit Provider Podiatrist Foot & Ankle Surgery | DX: E11.42 Type 2 diabetes mellitus with diabetic polyneuropathy (principal); L60.3 Nail dystrophy; L84 Corns and callosities; I73.9 Peripheral vascular disease, unspecified; Z79.4 Long term (current) use of insulin | CPT/HCPCS: 11056; 11721 ==

== ENCOUNTER → 2023-12-04 13:49 | Outpatient (BNVA) | payer MEDICARE, SELFPAY | PROVIDERS: PCP Internal Medicine; Visit Provider Podiatrist Foot & Ankle Surgery | DX: E11.42 Type 2 diabetes mellitus with diabetic polyneuropathy (principal); L60.3 Nail dystrophy; L84 Corns and callosities; I73.9 Peripheral vascular disease, unspecified; Z79.4 Long term (current) use of insulin | CPT/HCPCS: 11056; 11721 ==

== ENCOUNTER → 2023-12-25 10:35 | Outpatient (BNVA) | payer MEDICARE, SELFPAY | PROVIDERS: PCP Internal Medicine; Visit Provider Nurse Practitioner Family | DX: L82.1 Other seborrheic keratosis (principal); L81.4 Other melanin hyperpigmentation; D69.2 Other nonthrombocytopenic purpura; L57.0 Actinic keratosis; L21.8 Other seborrheic dermatitis; Z85.828 Personal history of other malignant neoplasm of skin | CPT/HCPCS: 17000; 99214 ==

== ENCOUNTER 2023-12-27 20:08 | Emergency (ER) | payer MEDICARE, SELFPAY ==
[2023-12-27 20:12] VITALS: BP 188/78; PULSE 85; RESP 18; TEMP 36.6; O2SAT 98; BMI 38.6
--- NOTE | 2023-12-27 20:44 | XRR_ITS ---
PROCEDURE INFORMATION: Exam: XR Chest Exam date and time: 12/27/2023 9:09 PM Age: 88 years old Clinical indication: Shortness of breath; Additional info: Cough TECHNIQUE: Imaging protocol: Radiologic exam of the chest. Views: 1 view. COMPARISON: CR XR chest 1V portable [id number] 04/26/2022 11:52 PM FINDINGS: Lungs: Unremarkable. No consolidation. Pleural spaces: Unremarkable. No pleural effusion. No pneumothorax. Heart/Mediastinum: Unremarkable. No cardiomegaly. Bones/joints: Unremarkable. XR/XR chest 1V portable [id number] IMPRESSION: No acute findings.
--- NOTE | 2023-12-27 20:45 | ED_ITS ---
HPI - URI/Sore Throat 2 General: Chief Complaint: Upper Respiratory Infection Stated Complaint: cough,sob Time Seen by Provider: 12/27/23 20:42 History of Present Illness: Patient presents to the ER with complaint of shortness of breath and nonproductive dry hacking cough. This been going on for 3 weeks. Patient was seen at the walk-in clinic twice prescribed a Z-Jose Cruz once and steroids the other time but states that none of these helped. Patient denies any fever chills nausea vomiting abdominal pain. Patient says she lives to [facility] and respiratory stuff is going around. Review of Systems 2 General: Reports: 10 or more systems reviewed and unremarkable except in HPI and below PFSH ED 2 PFSH: Medical History Type 2 diabetes mellitus with diabetic polyneuropathy Hypertension Hypothyroidism High cholesterol Type 2 diabetes mellitus with diabetic polyneuropathy Surgical History History of cholecystectomy Family History Mother Cancer CAD (coronary artery disease) Father Diabetes Social History Smoking and tobacco/nicotine status: never used tobacco/nicotine Household members: none Current occupational status: retired Physical Exam 2 Const: COMMON NORMALS: no acute distress, average body habitus, patient oriented x3, no limitations, healthy appearing, alert and well nourished HENMT: COMMON NORMALS: normocephalic, atraumatic, hearing grossly normal bilaterally, external ears normal, EAC's normal, Normal external nose present, moist oral mucous membranes and oropharynx normal HEAD & SCALP: normocephalic and atraumatic NOSE: Normal external nose present EXTERNAL EAR: Yes external ears normal EXTERNAL AUDITORY CANAL: EAC's normal Neck/C-Spine: COMMON NORMALS: no JVD Chest: COMMONS NORMALS: normal inspection of the chest and normal palpation of entire chest wall Resp: COMMON NORMALS: normal respiratory effort, No retractions, No use of accessory muscles and clear to auscultation bilaterally AUSCULTATION: clear to auscultation bilaterally Cardio: COMMON NORMALS: no JVD, regular rate, regular rhythm, S1 normal heart sound present, S2 normal heart sound present, No gallops present (Cardio), No clicks present (Cardio), No murmurs present (Cardio) and No rub (Cardio) R ATE: regular rate RHYTHM: regular rhythm HEART SOUNDS: S1 normal heart sound present and S2 normal heart sound present GI: COMMON NORMALS: Normal to inspection, nondistended, normoactive bowel sounds present, Soft to palpation, non-tender, No hepatosplenomegaly present and no masses PALPATION: Yes Soft to palpation and Yes No hepatosplenomegaly present Neuro: COMMON NORMALS: patient oriented x3 SENSORIUM/ORIENTATION: Yes alert Course 2 Vital Signs: Vital signs: Vital Signs Temperature 97.8 F 12/27/23 22:30 Pulse Rate 85 12/27/23 22:30 Respiratory Rate 18 12/27/23 22:30 Blood Pressure 193/75 12/27/23 22:30 Pulse Oximetry 98 12/27/23 22:30 Oxygen Delivery Me thod Room Air 12/27/23 20:12 MDM - URI/Sore Throat Medical Decision Making Patient with chest x-ray, lab work, influenza and COVID screening. All of which was essentially negative. Patient was given Tessalon Perles and it seemed to help her cough. Patient will be discharged home with prescription for Tessalon Perles. Differential Diagnosis Likely upper respiratory infection and bronchitis; Unlikely croup, otitis media, sinusitis, viral infection, influenza or pharyngitis Medical Records I reviewed the patient's medical records. Lab Data I reviewed the patient's lab results. 12/27/23 21:00 12/27/23 21:00 Radiology Impressions Chest X-Ray 12/27/23 20:44 IMPRESSION: No acute findings. Laboratory Results WBC 13.78 10^3/uL (3.29-11.43) H 12/27/23 21:00 RBC 4.59 10^6/uL (3.85-5.65) 12/27/23 21:00 Hgb 13.30 g/dL (11.27-16.99) 12/27/23 21:00 Hct 39.8 % (36-47) 12/27/23 21:00 MCV 86.7 fl (85-98) 12/27/23 21:00 MCH 29.0 pg (27-33) 12/27/23 21:00 MCHC 33.4 g/dL (30-55) 12/27/23 21:00 RDW 12.4 % (12.1-15.1) 12/27/23 21:00 Plt Count 407 10^3/cmm (157-399) H 12/27/23 21:00 MPV 10.2 fL (7.4-10.4) 12/27/23 21:00 Neut % (Auto) 63.2 % 12/27/23 21:00 Lymph % (Auto) 26.8 % 12/27/23 21:00 Amelia % (Auto) 8.3 % 12/27/23 21:00 Eos % (Auto) 0.8 % 12/27/23 21:00 Baso % (Auto) 0.7 % 12/27/23 21:00 Neut # (Auto) 8.71 10^3/uL (1.8-7.7) H 12/27/23 21:00 Lymph # (Auto) 3.7 10^3/uL (0.8-4.8) 12/27/23 21:00 Amelia # (Auto) 1.2 10^3/uL (0.2-0.9) H 12/27/23 21:00 Eos # (Auto) 0.1 10^3/uL (0.0-0.8) 12/27/23 21:00 Baso # (Auto) 0.1 10^3/uL (0.0-0.1) 12/27/23 21:00 Nucleated RBC % (auto) 0 % 12/27/23 21:00 Nucleated RBCs # 0.0 /100WBC 12/27/23 21:00 Sodium 134 mmol/L (136-145) L 12/27/23 21:00 Potassium 3.7 mmol/L (3.5-5.1) 12/27/23 21:00 Chloride 95 mmol/L (98-107) L 12/27/23 21:00 Carbon Dioxide 27 mmol/L (22-29) 12/27/23 21:00 Anion Gap 15.7 (5-19) 12/27/23 21:00 BUN 30 mg/dL (8-23) H 12/27/23 21:00 Creatinine 1.0 mg/dL (0.5-0.9) H 12/27/23 21:00 GFR Calculation Not Reportable 12/27/23 21:00 Glucose 330 mg/dL (65-115) H 12/27/23 21:00 Calculated Osmolality 297 mOsm/kg (285-295) H 12/27/23 21:00 Calcium 8.9 mg/dL (8.5-10.5) 12/27/23 21:00 Total Bilirubin 0.2 mg/dL (0.15-1.2) 12/27/23 21:00 AST 14 U/L (0-32) 12/27/23 21:00 ALT 14 U/L (0-33) 12/27/23 21:00 Alkaline Phosphatase 104 U/L (35-105) 12/27/23 21:00 Total Protein 7.5 g/dL (6.6-8.7) 12/27/23 21:00 Albumin 3.8 g/dL (3.5-5.2) 12/27/23 21:00 Globulin 3.7 g/dL (1.3-4.6) 12/27/23 21:00 Influenza Type A Ag negative (Negative) 12/27/23 21:25 Influenza Type B Ag negative (Negative) 12/27/23 21:25 SARS-CoV-2 Ag (Rapid) negative (Negative) 12/27/23 21:25 All radiology interpretation(s) finalized by discharge Discharge Plan Discharge Patient Disposition: Home Clinical Impression: Cough Qualifiers: Cough type: acute Qualified Code(s): R05.1 - Acute cough Condition: Stable Prescriptions: New benzonatate 100 mg capsule 100 mg PO TID PRN (Reason: cough) Qty: 30 0RF No Action hydroxyzine HCl 25 mg tablet PO triamcinolone acetonide 0.1 % ointment 1 applic topical BID Qty: 80 1RF Rx Instructions: apply to affected areas twice daily for 2 weeks alternating with clobetasol mupirocin 2 % ointment 1 applic topical BID Qty: 15 1RF Rx Instructions: Apply to affected area twice a day, as needed (DME) Diabetic shoes with 3 Custom Inserts See Rx Instructions .Route .MEDSUPPLY Qty: 1 0RF Rx Instructions: As directed calcium 600 mg Capsule 1,200 mg PO DAILY artificial tears solution Drops 1 drp OPHTHALMIC (EYE) DAILY PRN (Reason: Dry Eyes) cyanocobalamin (vitamin B-12) [Vitamin B-12] 1,000 mcg Tablet 1,000 mcg PO BID aspirin 81 mg Tablet,Delayed Release (Dr/Ec) 81 mg PO DAILY levothyroxine [Synthroid] 50 mcg tablet 50 mcg PO DAILY losartan 25 mg tablet 25 mg PO DAILY oxybutynin chloride 5 mg Tablet 5 mg PO BID insulin glargine [Lantus Solostar U-100 Insulin] 100 unit/mL (3 mL) insulin pen 10 unit SUBCUT BEDTIME Glucosamine Chondroitin 550-30-1 mg Capsule 1 cap PO BID Fish Oil 1,200 (144-216) mg Capsule 1 cap PO BID triamcinolone acetonide 0.1 % cream 1 applic TOPICAL DAILY PRN (Reason: Rash) Discharge Orders: Discharge ED (Routine); Ordered 12/28/23 Ordered By: Robert Shirley Referrals: Jimi Lynn DO [Primary Care Provider] - 1 week Patient Instructions: Acute Cough (ED) Activity Restrictions/Additional Instructions: Please take all medicine as directed. Please follow-up with your family practitioner within next 7 days for further evaluation and treatment if needed. Coding Level of Care Code ED Reproduction Order Processor for Armando Dickinson
[2023-12-27 21:11] LABS: Basophils # 0.1 10^3/uL (0.0-0.1); Basophils % 0.7 %; Eosinophils # 0.1 10^3/uL (0.0-0.8); Eosinophils % 0.8 %; Hematocrit 39.8 % (36-47); Lymphocytes # 3.7 10^3/uL (0.8-4.8); Lymphocytes % 26.8 %; Mean Corpuscular HGB Conc 33.4 g/dL (30-55); Mean Corpuscular Volume 86.7 fl (85-98); Mean Platelet Volume 10.2 fL (7.4-10.4); Monocytes # 1.2 10^3/uL (0.2-0.9); Monocytes % 8.3 %; Neutrophils # 8.71 10^3/uL (1.8-7.7); Neutrophils % 63.2 %; Nucleated Red Blood Cells % 0 %; Platelet Count 407 10^3/cmm (157-399); Red Blood Count 4.59 10^6/uL (3.85-5.65); Red Cell Distribution Width 12.4 % (12.1-15.1); White Blood Count 13.78 10^3/uL (3.29-11.43)
[2023-12-27] MEDS: benzonatate 100 mg Capsule 200 MG PO (21:23)
[2023-12-27 21:32] LABS: Alanine Aminotransferase 14 U/L (0-33); Albumin Level 3.8 g/dL (3.5-5.2); Alkaline Phosphatase 104 U/L (35-105); Anion Gap 15.7 (5-19); Aspartate Amino Transferase 14 U/L (0-32); Blood Urea Nitrogen 30 mg/dL (8-23); Calcium 8.9 mg/dL (8.5-10.5); Carbon Dioxide 27 mmol/L (22-29); Chloride 95 mmol/L (98-107); Creatinine Clr Calc Pharmacy 44.3393; Globulin 3.7 g/dL (1.3-4.6); Glucose 330 mg/dL (65-115); Osmolality Calculated 297 mOsm/kg (285-295); Potassium 3.7 mmol/L (3.5-5.1); Sodium 134 mmol/L (136-145); Total Bilirubin 0.2 mg/dL (0.15-1.2); Total Protein 7.5 g/dL (6.6-8.7)
[2023-12-27 21:59] LABS: Influenza A by IFA negative (Negative); Influenza B by IFA negative (Negative); SARS Covid-2 Antigen negative (Negative)
[2023-12-27 22:20] VITALS: BP 193/75
[2023-12-27] MEDS: benzonatate 100 mg Capsule PO (22:20)
[2023-12-27] MEDS: cloNIDine 0.1 mg Tablet 0.100000000000000006 MG PO (22:20)
[2023-12-27 22:30] VITALS: BP 193/75; PULSE 85; RESP 18; TEMP 36.6; O2SAT 98
== END 2023-12-27 22:31 | disposition home or self-care (01) ==
PROVIDERS: Emergency Provider Emergency Medicine; PCP Internal Medicine
DX: R05.1 Acute cough (principal); Z79.82 Long term (current) use of aspirin; Z79.4 Long term (current) use of insulin; Z11.52 Encounter for screening for COVID-19; E11.42 Type 2 diabetes mellitus with diabetic polyneuropathy; I10 Essential (primary) hypertension
CPT/HCPCS: 36415; 71045; 80053; 85025; 87426; 87804; 99284

== ENCOUNTER → 2024-02-12 14:49 | Outpatient (BNVA) | payer MEDICARE, SELFPAY | PROVIDERS: PCP Internal Medicine; Visit Provider Podiatrist Foot & Ankle Surgery | DX: E11.42 Type 2 diabetes mellitus with diabetic polyneuropathy (principal); L60.3 Nail dystrophy; L84 Corns and callosities; I73.9 Peripheral vascular disease, unspecified; Z79.84 Long term (current) use of oral hypoglycemic drugs | CPT/HCPCS: 11056; 11721 ==

== ENCOUNTER → 2024-03-19 13:52 | Outpatient (BNVA) | payer MEDICARE, SELFPAY | PROVIDERS: PCP Internal Medicine; Visit Provider Nurse Practitioner Family | DX: L82.1 Other seborrheic keratosis (principal); L81.4 Other melanin hyperpigmentation; D69.2 Other nonthrombocytopenic purpura; L57.0 Actinic keratosis; L21.8 Other seborrheic dermatitis; L82.0 Inflamed seborrheic keratosis; L57.8 Other skin changes due to chronic exposure to nonionizing radiation; Z85.828 Personal history of other malignant neoplasm of skin | CPT/HCPCS: 17000; 17110; 99213 ==

== ENCOUNTER → 2024-05-14 14:17 | Outpatient (BNVA) | payer MEDICARE, SELFPAY | PROVIDERS: PCP Internal Medicine; Visit Provider Nurse Practitioner Family | DX: L82.0 Inflamed seborrheic keratosis (principal); L82.1 Other seborrheic keratosis; L81.4 Other melanin hyperpigmentation; D69.2 Other nonthrombocytopenic purpura; Z85.828 Personal history of other malignant neoplasm of skin | CPT/HCPCS: 17110; 99213 ==

== ENCOUNTER → 2024-05-26 13:49 | Outpatient (BNVA) | payer MEDICARE, SELFPAY | PROVIDERS: PCP Internal Medicine; Visit Provider Podiatrist Foot & Ankle Surgery | DX: L84 Corns and callosities (principal); I73.9 Peripheral vascular disease, unspecified; E11.42 Type 2 diabetes mellitus with diabetic polyneuropathy; L60.3 Nail dystrophy; Z79.4 Long term (current) use of insulin | CPT/HCPCS: 11056; 11721 ==

== ENCOUNTER → 2024-09-21 13:26 | Outpatient (BNVA) | payer MEDICARE, SELFPAY | PROVIDERS: PCP Internal Medicine; Visit Provider Nurse Practitioner Family | DX: L82.1 Other seborrheic keratosis (principal); L81.4 Other melanin hyperpigmentation; D69.2 Other nonthrombocytopenic purpura; L21.8 Other seborrheic dermatitis; Z85.828 Personal history of other malignant neoplasm of skin; D48.5 Neoplasm of uncertain behavior of skin; L57.0 Actinic keratosis | CPT/HCPCS: 17000; 69100; 99214 ==